=== PATIENT | female | born 1965 | race Caucasian/White ===

== ENCOUNTER 2018-08-01 21:06 | Inpatient (IN) | payer MEDICAID ==
[~2018-08-01] VITALS: Ht 165.1 cm; Wt 137.9 kg
[2018-08-01] MEDS ORDERED: ALBUTEROL (0.083%) 2.5MG/3ML NEB HHN STA (21:39)
[2018-08-01 22:11] LABS: BG BASE EXCESS -0.9 mmol/L (-2.0-2.0); BG CARBOXYHEMOGLOBIN 1.6 % (0.5-1.5); BG DEOXYHEMOGLOBIN 2.1 % (0.0-5.0); BG FRACTION INSPIRED OXYGEN 50; BG HCO3 ACT 26.8 mmol/L (22.0-26.0); BG METHEMOGLOBIN 0.2 % (0.0-1.5); BG OXYGEN SATURATION 97.9 % (92.0-98.5); BG OXYHEMOGLOBIN 96.1 % (94.0-97.0); BG PCO2 59.5 mmHg (35.0-45.0); BG PH 7.272 (7.350-7.450); BG PO2 122.9 mmHg (75.0-100.0); BG SAMPLE SITE RIGHT RADIAL; BG TOTAL HEMOGLOBIN 11.8 g/dL (12.0-18.0); BG VENT MODE MASK - AEROSOL
[2018-08-01 23:12] LABS: BASOPHILS % 0.5 % (0.0-2.0); EOSINOPHILS % 0.9 % (0.0-5.0); HEMATOCRIT. 31.9 % (36.0-48.0); HEMOGLOBIN. 10.1 g/dL (12.0-16.0); LYMPHOCYTES % 9.9 % (20.0-50.0); MEAN CORPUSCULAR HEMOGLOBIN 24.9 pg (28.0-32.0); MEAN CORPUSCULAR VOLUME 78.2 fL (81.0-99.0); MEAN PLATELET VOLUME 8.4 fl (7.4-10.4); MONOCYTES % 7.1 % (2.0-8.0); NEUTROPHILS % 81.6 % (40.0-76.0); PLATELET 254 x1000/uL (130-400); RED BLOOD CELL COUNT 4.07 mill/uL (4.2-5.4); RED CELL DISTRIBUTION WIDTH 17.5 % (11.6-14.6)
[2018-08-01 23:16] LABS: CHLORIDE 104 mEq/L (98-107)
[2018-08-01 23:22] LABS: INR 1.1; PARTIAL THROMBOPLASTIN TIME 30.7 sec (23.4-31.0); PROTHROMBIN TIME 10.8 sec (9.1-11.1)
[2018-08-02] MEDS ORDERED: FUROSEMIDE 100MG/10ML VIAL IVP ONE (00:30)
[2018-08-02 03:48] VITALS: BP 140/58
[2018-08-02 04:00] VITALS: BP_SYST 140; BP_SYST 153; BP_DIAS 58; BP_DIAS 68
[2018-08-02] MEDS ORDERED: ALBU18HF2 IH (04:30)
[2018-08-02] MEDS ORDERED: LORA2TAB2 PO (04:30)
[2018-08-02] MEDS ORDERED: DEXTROSE 50% WATER 50ML SYRINGE IV PRN (05:45)
[2018-08-02] MEDS ORDERED: NON FORMULARY PATIENT HOME MED XX SCH (05:45)
[2018-08-02] MEDS ORDERED: IPRATROPIUM/ALBUTEROL 0.5-3(2.5)MG/3ML NEB HHN PRN (06:00)
[2018-08-02] MEDS: FUROSEMIDE 40MG/4ML VIAL IVP SCH ×2 (06:41→16:52)
[2018-08-02] MEDS: BLOOD SUGAR DIAGNOSTIC STRIP TEST SCH ×4 (06:43→21:00)
[2018-08-02] MEDS: INSULIN LISPRO 100 UNITS/ML SUBCUT SCH ×4 (06:56→21:10)
[2018-08-02] MEDS: HYDROCODONE/ACETAMINOPHEN 5/325MG TABLET PO PRN ×2 (06:58→21:04)
[2018-08-02 08:00] VITALS: BP 111/45
[2018-08-02] MEDS: ENOXAPARIN 40MG/0.4ML SYR SUBCUT SCH ×2 (09:25→21:05)
[2018-08-02 09:35] LABS: BASOPHILS % 0.5 % (0.0-2.0); EOSINOPHILS % 1.6 % (0.0-5.0); HEMATOCRIT. 28.4 % (36.0-48.0); MEAN CORPUSCULAR VOLUME 78.5 fL (81.0-99.0); MEAN PLATELET VOLUME 8.3 fl (7.4-10.4); MONOCYTES % 8.7 % (2.0-8.0); NEUTROPHILS % 71.2 % (40.0-76.0); PLATELET 234 x1000/uL (130-400); RED BLOOD CELL COUNT 3.62 mill/uL (4.2-5.4); RED CELL DISTRIBUTION WIDTH 17.3 % (11.6-14.6)
[2018-08-02 09:41] LABS: CHLORIDE 104 mEq/L (98-107)
[2018-08-02 09:50] LABS: LDL CHOLESTEROL 97 mg/dL (5-100)
[2018-08-02 09:51] LABS: CREATINE KINASE 40 IU/L (26-192)
[2018-08-02 09:52] LABS: CREATINE KINASE MB FRACTION 1.5 ng/mL (0.5-3.6); HDL CHOLESTEROL 46 mg/dL (40-59)
[2018-08-02] MEDS: POTASSIUM CHLORIDE 20MEQ TABLET SR PO SCH (11:02)
[2018-08-02] MEDS: HYDROCODONE/ACETAMINOPHEN 10/325MG TABLET PO PRN ×3 (11:02→16:59)
[2018-08-02] MEDS: CARVEDILOL 6.25 MG TABLET PO SCH ×2 (11:02→21:05)
[2018-08-02] MEDS: LOSARTAN POTASSIUM 50 MG TABLET PO SCH (11:03)
[2018-08-02] MEDS: ASPIRIN 81MG EC TABLET PO SCH (11:03)
[2018-08-02 12:00] VITALS: BP 112/35
[2018-08-02] MEDS: LORAZEPAM 1MG TABLET PO PRN ×2 (14:09→22:17)
[2018-08-02 16:00] VITALS: BP 130/58
[2018-08-02 16:03] LABS: CREATINE KINASE 43 IU/L (26-192)
[2018-08-02 16:04] LABS: CREATINE KINASE MB FRACTION 1.1 ng/mL (0.5-3.6)
[2018-08-02 20:00] VITALS: BP 109/45
[2018-08-02] MEDS: ATORVASTATIN CALCIUM 40MG TABLET PO SCH (21:04)
[2018-08-03] VITALS (7 sets, daily range): BP systolic 110–144; BP diastolic 35–60
[2018-08-03] MEDS: HYDROCODONE/ACETAMINOPHEN 10/325MG TABLET PO PRN ×4 (00:21→16:17)
[2018-08-03] MEDS: HYDROCODONE/ACETAMINOPHEN 5/325MG TABLET PO PRN ×2 (04:31→21:02)
[2018-08-03] MEDS: BLOOD SUGAR DIAGNOSTIC STRIP TEST SCH ×4 (06:13→21:04)
[2018-08-03] MEDS: FUROSEMIDE 40MG/4ML VIAL IVP SCH ×2 (06:37→17:55)
[2018-08-03] MEDS: INSULIN LISPRO 100 UNITS/ML SUBCUT SCH ×4 (06:39→21:03)
[2018-08-03] MEDS: POTASSIUM CHLORIDE 20MEQ TABLET SR PO SCH (08:56)
[2018-08-03] MEDS: LOSARTAN POTASSIUM 50 MG TABLET PO SCH (08:56)
[2018-08-03] MEDS: LORAZEPAM 1MG TABLET PO PRN ×2 (08:56→18:01)
[2018-08-03] MEDS: ASPIRIN 81MG EC TABLET PO SCH (08:56)
[2018-08-03] MEDS: CARVEDILOL 6.25 MG TABLET PO SCH ×2 (08:57→21:02)
[2018-08-03] MEDS: ENOXAPARIN 40MG/0.4ML SYR SUBCUT SCH ×2 (09:36→21:02)
[2018-08-03] MEDS: ATORVASTATIN CALCIUM 40MG TABLET PO SCH (21:02)
[2018-08-03] MEDS: INSULIN GLARGINE UD 100 UNITS/ML SYR SUBCUT SCH (21:03)
[2018-08-04] VITALS (7 sets, daily range): BP systolic 95–156; BP diastolic 44–79
[2018-08-04] MEDS: LORAZEPAM 1MG TABLET PO PRN ×2 (04:09→21:15)
[2018-08-04] MEDS: HYDROCODONE/ACETAMINOPHEN 10/325MG TABLET PO PRN ×2 (05:05→18:26)
[2018-08-04 06:28] LABS: BASOPHILS % 0.6 % (0.0-2.0); EOSINOPHILS % 1.8 % (0.0-5.0); HEMATOCRIT. 28.2 % (36.0-48.0); LYMPHOCYTES % 19.3 % (20.0-50.0); MEAN CORPUSCULAR HEMOGLOBIN 24.9 pg (28.0-32.0); MEAN CORPUSCULAR VOLUME 78.4 fL (81.0-99.0); MEAN PLATELET VOLUME 9.1 fl (7.4-10.4); MONOCYTES % 6.7 % (2.0-8.0); NEUTROPHILS % 71.6 % (40.0-76.0); PLATELET 243 x1000/uL (130-400); RED BLOOD CELL COUNT 3.59 mill/uL (4.2-5.4); RED CELL DISTRIBUTION WIDTH 17.3 % (11.6-14.6)
[2018-08-04] MEDS: FUROSEMIDE 40MG/4ML VIAL IVP SCH (06:33)
[2018-08-04] MEDS: BLOOD SUGAR DIAGNOSTIC STRIP TEST SCH ×4 (06:33→21:15)
[2018-08-04] MEDS: INSULIN LISPRO 100 UNITS/ML SUBCUT SCH ×4 (06:36→21:16)
[2018-08-04] MEDS: LOSARTAN POTASSIUM 50 MG TABLET PO SCH ×3 (09:00→12:17)
[2018-08-04] MEDS: POTASSIUM CHLORIDE 20MEQ TABLET SR PO SCH ×2 (09:00→09:15)
[2018-08-04] MEDS: CARVEDILOL 6.25 MG TABLET PO SCH ×4 (09:00→21:15)
[2018-08-04] MEDS: ENOXAPARIN 40MG/0.4ML SYR SUBCUT SCH ×2 (09:15→21:15)
[2018-08-04] MEDS: ASPIRIN 81MG EC TABLET PO SCH (09:15)
[2018-08-04] MEDS: INSULIN GLARGINE UD 100 UNITS/ML SYR SUBCUT SCH ×2 (11:35→21:17)
[2018-08-04] MEDS: HYDROCODONE/ACETAMINOPHEN 5/325MG TABLET PO PRN (12:11)
[2018-08-04] MEDS: AZITHROMYCIN 500 MG TABLET PO SCH (14:32)
[2018-08-04] MEDS ORDERED: CEFTRIAXONE 1,000 MG in DEXTROSE 5% WATER 50 ML IV SCH (15:00)
[2018-08-04] MEDS ORDERED: SODIUM POLYSTYRENE SULFONATE 15 G/60 ML BOT PO NR (15:00)
[2018-08-04] MEDS: ATORVASTATIN CALCIUM 40MG TABLET PO SCH (21:14)
[2018-08-05] VITALS: BP 137/47
[2018-08-05] MEDS: HYDROCODONE/ACETAMINOPHEN 10/325MG TABLET PO PRN ×2 (01:49→08:19)
[2018-08-05 04:00] VITALS: BP 134/62
[2018-08-05] MEDS: BLOOD SUGAR DIAGNOSTIC STRIP TEST SCH (06:26)
[2018-08-05] MEDS: INSULIN LISPRO 100 UNITS/ML SUBCUT SCH (06:27)
[2018-08-05 06:33] LABS: BASOPHILS % 0.6 % (0.0-2.0); EOSINOPHILS % 2.2 % (0.0-5.0); HEMATOCRIT. 24.3 % (36.0-48.0); HEMOGLOBIN. 7.9 g/dL (12.0-16.0); LYMPHOCYTES % 25.4 % (20.0-50.0); MEAN CORPUSCULAR HEMOGLOBIN 25.4 pg (28.0-32.0); MEAN CORPUSCULAR VOLUME 78.5 fL (81.0-99.0); MEAN PLATELET VOLUME 8.7 fl (7.4-10.4); MONOCYTES % 7.9 % (2.0-8.0); NEUTROPHILS % 63.9 % (40.0-76.0); PLATELET 236 x1000/uL (130-400); RED BLOOD CELL COUNT 3.09 mill/uL (4.2-5.4)
[2018-08-05 08:00] VITALS: BP 155/59
[2018-08-05] MEDS: ENOXAPARIN 40MG/0.4ML SYR SUBCUT SCH (08:18)
[2018-08-05] MEDS: ASPIRIN 81MG EC TABLET PO SCH (08:18)
[2018-08-05] MEDS: AZITHROMYCIN 500 MG TABLET PO SCH (08:18)
[2018-08-05] MEDS: CARVEDILOL 6.25 MG TABLET PO SCH (09:00)
[2018-08-05] MEDS ORDERED: FUROSEMIDE 40MG TABLET PO SCH (09:00)
[2018-08-05] MEDS: INSULIN GLARGINE UD 100 UNITS/ML SYR SUBCUT SCH (11:09)
== END 2018-08-05 11:55 | disposition home or self-care (01) | DRG 194 ==
LOC: ER 21:06 → 5WST 08-02 01:13 → ENRESERV 08-02 03:17
PROVIDERS: ADMIT Internal Medicine; ATTEND Internal Medicine
DX: I13.0 Hypertensive heart and chronic kidney disease with heart failure and stage 1 through stage 4 chronic kidney disease, or unspecified chronic kidney disease (principal); J96.20 Acute and chronic respiratory failure, unspecified whether with hypoxia or hypercapnia; E43 Unspecified severe protein-calorie malnutrition; E87.2 Acidosis; E11.22 Type 2 diabetes mellitus with diabetic chronic kidney disease; Z99.81 Dependence on supplemental oxygen; I50.33 Acute on chronic diastolic (congestive) heart failure; N18.1 Chronic kidney disease, stage 1; J44.9 Chronic obstructive pulmonary disease, unspecified; D64.9 Anemia, unspecified; E11.65 Type 2 diabetes mellitus with hyperglycemia; E66.01 Morbid (severe) obesity due to excess calories; E78.5 Hyperlipidemia, unspecified; R32 Unspecified urinary incontinence; Z87.891 Personal history of nicotine dependence; Z98.891 History of uterine scar from previous surgery; Z68.43 Body mass index [BMI] 50.0-59.9, adult; Z79.899 Other long term (current) drug therapy
CPT/HCPCS: 36415; 36600; 71045; 80048; 80061; 82375; 82550; 82553; 82805; 82962; 83735; 83880; 84484; 93005; 93306; 93970; 94640; 96365; 96375; 99285; J0696; J1650; J1815; J1940; J7060; J7611; A4315

== ENCOUNTER 2018-08-06 10:35 | Inpatient (IN) | payer MEDICAID, OTHER ==
[~2018-08-06] VITALS: Ht 157.5 cm; Wt 156.5 kg
[~2018-08-06 10:35] MED LIST: ALBU18HF2 IH; LORA2TAB2 PO
[2018-08-06] MEDS ORDERED: IPRATROPIUM BROMIDE (0.02%) 0.5MG/2.5ML NEB HHN STA (11:05)
[2018-08-06] MEDS ORDERED: METHYLPREDNISOLONE SOD SUCC 125 MG/2 ML VIAL IV STA (11:05)
[2018-08-06] MEDS ORDERED: ALBUTEROL (0.083%) 2.5MG/3ML NEB HHN STA (11:05)
[2018-08-06 11:57] LABS: EOSINOPHILS % 1.6 % (0.0-5.0); HEMATOCRIT. 27.7 % (36.0-48.0); HEMOGLOBIN. 8.9 g/dL (12.0-16.0); MEAN CORPUSCULAR HEMOGLOBIN 25.1 pg (28.0-32.0); MEAN CORPUSCULAR VOLUME 78.3 fL (81.0-99.0); MEAN PLATELET VOLUME 8.7 fl (7.4-10.4); MONOCYTES % 6.9 % (2.0-8.0); NEUTROPHILS % 78.5 % (40.0-76.0); PLATELET 287 x1000/uL (130-400); RED BLOOD CELL COUNT 3.54 mill/uL (4.2-5.4); RED CELL DISTRIBUTION WIDTH 16.7 % (11.6-14.6)
[2018-08-06 12:05] LABS: CHLORIDE 106 mEq/L (98-107)
[2018-08-06 13:10] LABS: HCG SCREEN NEGATIVE
[2018-08-06] MEDS ORDERED: LEVOFLOXACIN 750MG PREMIX 150 ML IV ONE (13:15)
[2018-08-06] MEDS ORDERED: FUROSEMIDE 100MG/10ML VIAL IVP ONE (13:15)
[2018-08-06] MEDS ORDERED: ONDANSETRON HCL 4MG/2ML INJ IV PRN (14:30)
[2018-08-06] MEDS ORDERED: DEXTROSE 50% WATER 50ML SYRINGE IV PRN (14:30)
[2018-08-06] MEDS ORDERED: IPRATROPIUM/ALBUTEROL 0.5-3(2.5)MG/3ML NEB HHN PRN (14:30)
[2018-08-06] MEDS ORDERED: ACETAMINOPHEN 325MG TABLET PO PRN (14:30)
[2018-08-06] MEDS ORDERED: AZITHROMYCIN 500 MG TABLET PO SCH (14:30)
[2018-08-06] MEDS ORDERED: MORPHINE SULFATE 4 MG/ML CPJ (NOT FOR IM USE) IV NR (14:45)
[2018-08-06 15:53] LABS: TOTAL IRON BINDING CAPACITY 231 ug/dL (250-450)
[2018-08-06 16:35] LABS: CLARITY URINE CLEAR (CLEAR); COLOR URINE YELLOW (YELLOW); KETONES URINE NEGATIVE (NEGATIVE); LEUKOCYTE ESTERASE URINE NEGATIVE (NEGATIVE); NITRITE URINE NEGATIVE (NEGATIVE); OCCULT BLOOD URINE 1+ (NEGATIVE); PH URINE 5.5 (4.5-8.0); PROTEIN URINE 3+ (NEGATIVE); SPECIFIC GRAVITY URINE 1.014 (1.005-1.030)
[2018-08-06] MEDS ORDERED: CEFTRIAXONE 1 G PREMIX 50 ML IV NR (17:00)
[2018-08-06 17:05] LABS: *AMPHETAMINES SCREEN URINE NEGATIVE (NEGATIVE); *BARBITURATES SCREEN URINE NEGATIVE (NEGATIVE); *BENZODIAZEPINES SCREEN URINE NEGATIVE (NEGATIVE); *COCAINE SCREEN URINE NEGATIVE (NEGATIVE); CANNABINOID URINE SCREEN NEGATIVE (NEGATIVE); METHADONE URINE SCREEN NEGATIVE (NEGATIVE); OPIATES URINE SCREEN PRESUMTIVE POSITIVE (NEGATIVE); PHENCYCLIDINE URINE SCREEN NEGATIVE (NEGATIVE)
[2018-08-06] MEDS ORDERED: INSULIN LISPRO 100 UNITS/ML SUBCUT SCH (18:20)
[2018-08-06] MEDS ORDERED: BUDESONIDE 0.5MG/2ML NEB HHN NR (20:30)
[2018-08-06] MEDS: KETOROLAC 30MG/ML VIAL IV PRN (22:29)
[2018-08-07] VITALS: BP_SYST 157; BP_DIAS 65; BP_DIAS 67
[2018-08-07] MEDS: AMLODIPINE 5MG TABLET PO SCH ×3 (01:18→20:39)
[2018-08-07] MEDS: IPRATROPIUM/ALBUTEROL 0.5-3(2.5)MG/3ML NEB HHN SCH ×4 (01:46→21:28)
[2018-08-07 04:00] VITALS: BP 154/63
[2018-08-07 05:53] VITALS: BP 157/63
[2018-08-07] MEDS: BLOOD SUGAR DIAGNOSTIC STRIP TEST SCH ×4 (06:42→20:39)
[2018-08-07] MEDS: INSULIN LISPRO 100 UNITS/ML SUBCUT SCH ×4 (06:44→20:44)
[2018-08-07 06:59] LABS: BASOPHILS % 0.3 % (0.0-2.0); HEMATOCRIT. 25.8 % (36.0-48.0); HEMOGLOBIN. 8.3 g/dL (12.0-16.0); LYMPHOCYTES % 12.3 % (20.0-50.0); MEAN CORPUSCULAR HEMOGLOBIN 25.2 pg (28.0-32.0); MEAN CORPUSCULAR VOLUME 78.2 fL (81.0-99.0); MEAN PLATELET VOLUME 8.7 fl (7.4-10.4); MONOCYTES % 7.7 % (2.0-8.0); NEUTROPHILS % 79.7 % (40.0-76.0); PLATELET 268 x1000/uL (130-400)
[2018-08-07 08:00] VITALS: BP 123/58
[2018-08-07] MEDS ORDERED: BUDESONIDE 0.5MG/2ML NEB HHN SCH (08:00)
[2018-08-07] MEDS ORDERED: KETOROLAC 30MG/ML VIAL ONE (08:27)
[2018-08-07] MEDS: FUROSEMIDE 40MG/4ML VIAL IVP SCH ×2 (09:04→18:20)
[2018-08-07] MEDS: AZITHROMYCIN 500 MG TABLET PO SCH (09:05)
[2018-08-07] MEDS: FERROUS SULFATE 325MG TABLET PO SCH ×3 (09:06→18:20)
[2018-08-07] MEDS: GUAIFENESIN 600MG ER TABLET PO SCH ×2 (09:06→20:38)
[2018-08-07] MEDS: DOCUSATE SODIUM 100MG CAPSULE PO SCH ×2 (10:07→18:20)
[2018-08-07] MEDS: KETOROLAC 30MG/ML VIAL IV PRN ×3 (10:27→23:03)
[2018-08-07 12:00] VITALS: BP 136/60
[2018-08-07] MEDS ORDERED: CEFTRIAXONE 1 G PREMIX 50 ML IV SCH (14:30)
[2018-08-07] MEDS: CEFTRIAXONE 1 G PREMIX 50 ML IV SCH (18:20)
[2018-08-07] MEDS: HYDROCODONE/ACETAMINOPHEN 5/325MG TABLET PO PRN (19:29)
[2018-08-07 20:00] VITALS: BP 144/80
[2018-08-07] MEDS: INSULIN GLARGINE UD 100 UNITS/ML SYR SUBCUT SCH (20:45)
[2018-08-07] MEDS: BUDESONIDE 0.5MG/2ML NEB HHN SCH (21:28)
[2018-08-07] MEDS: LORAZEPAM 0.5MG TABLET PO PRN (22:20)
[2018-08-08] VITALS: BP 125/58
[2018-08-08] MEDS: HYDROCODONE/ACETAMINOPHEN 5/325MG TABLET PO PRN ×3 (01:09→20:09)
[2018-08-08] MEDS: IPRATROPIUM/ALBUTEROL 0.5-3(2.5)MG/3ML NEB HHN SCH ×3 (02:40→20:28)
[2018-08-08 04:00] VITALS: BP 128/57
[2018-08-08 06:44] LABS: BASOPHILS % 0.6 % (0.0-2.0); HEMATOCRIT. 25.7 % (36.0-48.0); HEMOGLOBIN. 8.2 g/dL (12.0-16.0); LYMPHOCYTES % 25.2 % (20.0-50.0); MEAN CORPUSCULAR HEMOGLOBIN 25.1 pg (28.0-32.0); MEAN CORPUSCULAR VOLUME 78.7 fL (81.0-99.0); MEAN PLATELET VOLUME 8.2 fl (7.4-10.4); NEUTROPHILS % 63.2 % (40.0-76.0); PLATELET 261 x1000/uL (130-400); RED BLOOD CELL COUNT 3.26 mill/uL (4.2-5.4); RED CELL DISTRIBUTION WIDTH 17.5 % (11.6-14.6)
[2018-08-08] MEDS: KETOROLAC 30MG/ML VIAL IV PRN ×3 (07:09→21:10)
[2018-08-08] MEDS: BLOOD SUGAR DIAGNOSTIC STRIP TEST SCH ×4 (07:40→21:01)
[2018-08-08 08:00] VITALS: BP 147/68
[2018-08-08] MEDS: BUDESONIDE 0.5MG/2ML NEB HHN SCH (08:00)
[2018-08-08] MEDS: FERROUS SULFATE 325MG TABLET PO SCH ×3 (08:43→17:27)
[2018-08-08] MEDS: AMLODIPINE 5MG TABLET PO SCH ×2 (08:44→20:08)
[2018-08-08] MEDS: GUAIFENESIN 600MG ER TABLET PO SCH ×2 (08:44→20:09)
[2018-08-08] MEDS: AZITHROMYCIN 500 MG TABLET PO SCH (08:48)
[2018-08-08] MEDS: DOCUSATE SODIUM 100MG CAPSULE PO SCH ×2 (09:00→17:00)
[2018-08-08] MEDS: FUROSEMIDE 40MG/4ML VIAL IVP SCH (09:43)
[2018-08-08] MEDS: INSULIN GLARGINE UD 100 UNITS/ML SYR SUBCUT SCH ×2 (10:39→21:05)
[2018-08-08 12:00] VITALS: BP 135/62
[2018-08-08] MEDS: GLIPIZIDE 5MG TABLET PO SCH ×2 (13:13→17:48)
[2018-08-08] MEDS: INSULIN LISPRO 100 UNITS/ML SUBCUT SCH ×3 (13:14→21:05)
[2018-08-08 16:00] VITALS: BP 128/70
[2018-08-08] MEDS: LORAZEPAM 0.5MG TABLET PO PRN (17:43)
[2018-08-08] MEDS: CEFTRIAXONE 1 G PREMIX 50 ML IV SCH (18:22)
[2018-08-08 20:00] VITALS: BP 142/72
[2018-08-09] VITALS: BP 128/43
[2018-08-09] MEDS: IPRATROPIUM/ALBUTEROL 0.5-3(2.5)MG/3ML NEB HHN SCH ×4 (02:02→21:18)
[2018-08-09 04:00] VITALS: BP 122/49
[2018-08-09 06:34] LABS: BASOPHILS % 0.5 % (0.0-2.0); HEMATOCRIT. 26.2 % (36.0-48.0); HEMOGLOBIN. 8.4 g/dL (12.0-16.0); LYMPHOCYTES % 26.5 % (20.0-50.0); MEAN CORPUSCULAR HEMOGLOBIN 25.2 pg (28.0-32.0); MEAN CORPUSCULAR VOLUME 78.8 fL (81.0-99.0); MEAN PLATELET VOLUME 8.6 fl (7.4-10.4); PLATELET 258 x1000/uL (130-400); RED BLOOD CELL COUNT 3.32 mill/uL (4.2-5.4); RED CELL DISTRIBUTION WIDTH 17.4 % (11.6-14.6)
[2018-08-09] MEDS: KETOROLAC 30MG/ML VIAL IV PRN ×3 (06:47→22:40)
[2018-08-09] MEDS: BLOOD SUGAR DIAGNOSTIC STRIP TEST SCH ×4 (06:57→20:48)
[2018-08-09] MEDS: BUDESONIDE 0.5MG/2ML NEB HHN SCH ×2 (07:58→21:19)
[2018-08-09 08:00] VITALS: BP 126/60
[2018-08-09] MEDS: AMLODIPINE 5MG TABLET PO SCH ×2 (08:41→21:26)
[2018-08-09] MEDS: FERROUS SULFATE 325MG TABLET PO SCH ×3 (08:41→17:14)
[2018-08-09] MEDS: GUAIFENESIN 600MG ER TABLET PO SCH ×2 (08:42→21:22)
[2018-08-09] MEDS: GLIPIZIDE 5MG TABLET PO SCH ×2 (08:42→17:15)
[2018-08-09] MEDS: AZITHROMYCIN 500 MG TABLET PO SCH (08:42)
[2018-08-09] MEDS: INSULIN LISPRO 100 UNITS/ML SUBCUT SCH ×4 (08:44→21:41)
[2018-08-09] MEDS: DOCUSATE SODIUM 100MG CAPSULE PO SCH ×2 (08:45→17:00)
[2018-08-09] MEDS ORDERED: FUROSEMIDE 40MG TABLET PO SCH (09:00)
[2018-08-09] MEDS: INSULIN GLARGINE UD 100 UNITS/ML SYR SUBCUT SCH ×2 (09:59→21:34)
[2018-08-09 12:00] VITALS: BP 130/60
[2018-08-09 16:00] VITALS: BP 129/58
[2018-08-09] MEDS: CEFTRIAXONE 1 G PREMIX 50 ML IV SCH (17:52)
[2018-08-09] MEDS: HYDROCODONE/ACETAMINOPHEN 5/325MG TABLET PO PRN (19:53)
[2018-08-09 20:00] VITALS: BP 146/67
[2018-08-10] VITALS: BP 134/61
[2018-08-10] MEDS: IPRATROPIUM/ALBUTEROL 0.5-3(2.5)MG/3ML NEB HHN SCH ×3 (02:10→13:15)
[2018-08-10 04:00] VITALS: BP 128/62
[2018-08-10] MEDS: KETOROLAC 30MG/ML VIAL IV PRN ×2 (04:38→10:48)
[2018-08-10 06:26] LABS: BASOPHILS % 0.5 % (0.0-2.0); HEMATOCRIT. 27.4 % (36.0-48.0); HEMOGLOBIN. 8.8 g/dL (12.0-16.0); LYMPHOCYTES % 22.1 % (20.0-50.0); MEAN CORPUSCULAR HEMOGLOBIN 25.4 pg (28.0-32.0); MEAN CORPUSCULAR VOLUME 78.8 fL (81.0-99.0); MEAN PLATELET VOLUME 8.1 fl (7.4-10.4); MONOCYTES % 7.4 % (2.0-8.0); PLATELET 255 x1000/uL (130-400); RED BLOOD CELL COUNT 3.48 mill/uL (4.2-5.4); RED CELL DISTRIBUTION WIDTH 17.7 % (11.6-14.6)
[2018-08-10] MEDS: BLOOD SUGAR DIAGNOSTIC STRIP TEST SCH ×2 (06:31→12:40)
[2018-08-10 08:00] VITALS: BP 125/65
[2018-08-10] MEDS: BUDESONIDE 0.5MG/2ML NEB HHN SCH (08:28)
[2018-08-10] MEDS: DOCUSATE SODIUM 100MG CAPSULE PO SCH (08:41)
[2018-08-10] MEDS: FERROUS SULFATE 325MG TABLET PO SCH ×2 (08:41→13:28)
[2018-08-10] MEDS: AZITHROMYCIN 500 MG TABLET PO SCH (08:41)
[2018-08-10] MEDS: GUAIFENESIN 600MG ER TABLET PO SCH (08:41)
[2018-08-10] MEDS: GLIPIZIDE 5MG TABLET PO SCH (08:41)
[2018-08-10] MEDS: AMLODIPINE 5MG TABLET PO SCH (08:41)
[2018-08-10] MEDS: INSULIN LISPRO 100 UNITS/ML SUBCUT SCH ×2 (08:47→13:28)
[2018-08-10] MEDS ORDERED: FUROSEMIDE 40MG/4ML VIAL IVP SCH (09:00)
[2018-08-10] MEDS: INSULIN GLARGINE UD 100 UNITS/ML SYR SUBCUT SCH (10:57)
[2018-08-10 12:00] VITALS: BP 131/69
== END 2018-08-10 16:15 | disposition home or self-care (01) | DRG 720 ==
LOC: ER 11:08 → 7WST 13:36 → EDBEDREQ 13:38 → EDBEDREQTM 13:38 → ENRESERV 22:12 → 7WST 08-07 16:19
PROVIDERS: ADMIT Internal Medicine; ATTEND Internal Medicine
DX: A41.9 Sepsis, unspecified organism (principal); J96.00 Acute respiratory failure, unspecified whether with hypoxia or hypercapnia; I50.33 Acute on chronic diastolic (congestive) heart failure; E43 Unspecified severe protein-calorie malnutrition; J18.1 Lobar pneumonia, unspecified organism; I27.20 Pulmonary hypertension, unspecified; E66.01 Morbid (severe) obesity due to excess calories; N17.9 Acute kidney failure, unspecified; I11.0 Hypertensive heart disease with heart failure; E11.9 Type 2 diabetes mellitus without complications; J44.0 Chronic obstructive pulmonary disease with (acute) lower respiratory infection; D64.9 Anemia, unspecified; Z99.81 Dependence on supplemental oxygen; Z87.891 Personal history of nicotine dependence; Z68.44 Body mass index [BMI] 60.0-69.9, adult; Z71.3 Dietary counseling and surveillance
CPT/HCPCS: 36415; 71045; 80048; 80305; 82728; 82962; 83036; 83540; 83550; 83605; 83880; 84484; 84703; 87804; 93005; 94640; 94644; 96374; 97110; 97116; 97161; 97530; 99285; C1893; J0696; J1815; J1885; J1940; J1956; J2270; J2930; J7050; J7611; J7620; J7626

== ENCOUNTER 2018-08-29 11:10 | Inpatient (IN) | payer MEDICAID, MEDICARE ==
[~2018-08-29] VITALS: Ht 160 cm; Wt 141.6 kg
[2018-08-29] MEDS ORDERED: ALBUTEROL (0.083%) 2.5MG/3ML NEB HHN STA (11:13)
[2018-08-29] MEDS ORDERED: IPRATROPIUM BROMIDE (0.02%) 0.5MG/2.5ML NEB HHN STA (11:13)
[2018-08-29] MEDS ORDERED: NITROGLYCERIN OINT 1GM/INCH UDPKT TD ONE (11:15)
[2018-08-29] MEDS ORDERED: FUROSEMIDE 40MG/4ML VIAL IVP ONE (11:15)
[2018-08-29 11:58] LABS: BASOPHILS % 0.4 % (0.0-2.0); EOSINOPHILS % 3.4 % (0.0-5.0); HEMATOCRIT. 25.7 % (36.0-48.0); HEMOGLOBIN. 8.5 g/dL (12.0-16.0); LYMPHOCYTES % 12.7 % (20.0-50.0); MEAN CORPUSCULAR HEMOGLOBIN 25.5 pg (28.0-32.0); MEAN CORPUSCULAR VOLUME 76.5 fL (81.0-99.0); MEAN PLATELET VOLUME 7.8 fl (7.4-10.4); MONOCYTES % 6.8 % (2.0-8.0); NEUTROPHILS % 76.7 % (40.0-76.0); PLATELET 203 x1000/uL (130-400); RED BLOOD CELL COUNT 3.36 mill/uL (4.2-5.4)
[2018-08-29 12:02] LABS: CHLORIDE 106 mEq/L (98-107)
[2018-08-29 12:05] LABS: PARTIAL THROMBOPLASTIN TIME 27.8 sec (23.4-31.0); PROTHROMBIN TIME 10.1 sec (9.1-11.1)
[2018-08-29] MEDS ORDERED: LEVOFLOXACIN 750MG PREMIX 150 ML IV ONE (12:15)
[2018-08-29 12:18] LABS: BG BASE EXCESS 2.4 mmol/L (-2.0-2.0); BG BILEVEL POS AIRWAY PRESSURE 15/5; BG CARBOXYHEMOGLOBIN 0.6 % (0.5-1.5); BG DEOXYHEMOGLOBIN 1.3 % (0.0-5.0); BG HCO3 ACT 28.5 mmol/L (22.0-26.0); BG METHEMOGLOBIN 0.2 % (0.0-1.5); BG OXYGEN SATURATION 98.7 % (92.0-98.5); BG OXYHEMOGLOBIN 97.9 % (94.0-97.0); BG PCO2 52.4 mmHg (35.0-45.0); BG PH 7.354 (7.350-7.450); BG SAMPLE SITE RIGHT RADIAL; BG TOTAL HEMOGLOBIN 9.5 g/dL (12.0-18.0); BG VENT MODE MASK - BIPAP; BG VENT RATE 14 set
[2018-08-29] MEDS ORDERED: IPRATROPIUM/ALBUTEROL 0.5-3(2.5)MG/3ML NEB INH PRN (14:45)
[2018-08-29] MEDS ORDERED: GUAIFENESIN 200MG/10ML SUGAR FREE UDC PO PRN (14:45)
[2018-08-29] MEDS ORDERED: ONDANSETRON HCL 4MG/2ML INJ IV PRN (14:45)
[2018-08-29] MEDS ORDERED: HYDROCODONE/ACETAMINOPHEN 5/325MG TABLET PO PRN (14:45)
[2018-08-29] MEDS ORDERED: NA PHOS,M-B/NA PHOS,DI-BA ENEMA 118ML PR PRN (14:45)
[2018-08-29] MEDS ORDERED: DEXTROSE 50% WATER 50ML SYRINGE IV PRN (14:45)
[2018-08-29] MEDS ORDERED: MAGNESIUM/ALUMINUM HYDROXIDE/SIMETHICONE 30ML UDC PO PRN (14:45)
[2018-08-29] MEDS ORDERED: ACETAMINOPHEN 650MG SUPP PR PRN (14:45)
[2018-08-29] MEDS ORDERED: ACETAMINOPHEN 325MG TABLET PO PRN (14:45)
[2018-08-29] MEDS ORDERED: DOCUSATE SODIUM 100MG CAPSULE PO PRN (14:45)
[2018-08-29 15:16] LABS: TOTAL IRON BINDING CAPACITY 197 ug/dL (250-450)
[2018-08-29] MEDS: LORAZEPAM 0.5MG TABLET PO PRN (15:52)
[2018-08-29] MEDS: FUROSEMIDE 40MG/4ML VIAL IV SCH (20:43)
[2018-08-29] MEDS: FAMOTIDINE 20MG/2ML VIAL IV SCH (20:44)
[2018-08-29] MEDS: METHYLPREDNISOLONE SOD SUCC 40 MG/ML VIAL IV SCH (20:44)
[2018-08-29 20:48] VITALS: BP 145/59
[2018-08-29 20:56] VITALS: BP 145/59
[2018-08-29] MEDS: BLOOD SUGAR DIAGNOSTIC STRIP TEST SCH (21:00)
[2018-08-29] MEDS: INSULIN LISPRO 100 UNITS/ML SUBCUT SCH (21:00)
[2018-08-29] MEDS: DIPHENHYDRAMINE 50MG/ML VIAL IV PRN (21:16)
[2018-08-29] MEDS ORDERED: INSULIN LISPRO 100 UNITS/ML SUBCUT NR (23:30)
[2018-08-29] MEDS: MORPHINE SULFATE 4 MG/ML CPJ (NOT FOR IM USE) IV PRN (23:55)
[2018-08-30 00:26] VITALS: BP 166/76
[2018-08-30] MEDS: CLONIDINE 0.1MG TABLET PO PRN ×2 (02:03→10:21)
[2018-08-30 03:46] LABS: CLARITY URINE CLEAR (CLEAR); COLOR URINE YELLOW (YELLOW); KETONES URINE NEGATIVE (NEGATIVE); LEUKOCYTE ESTERASE URINE NEGATIVE (NEGATIVE); NITRITE URINE NEGATIVE (NEGATIVE); OCCULT BLOOD URINE 1+ (NEGATIVE); PROTEIN URINE 3+ (NEGATIVE); SPECIFIC GRAVITY URINE 1.015 (1.005-1.030); UROBILINOGEN URINE 0.2 E.U./dL (0.2-1.0)
[2018-08-30 04:00] VITALS: BP 128/60
[2018-08-30 04:53] LABS: *AMPHETAMINES SCREEN URINE NEGATIVE (NEGATIVE)
[2018-08-30 04:54] LABS: *BARBITURATES SCREEN URINE NEGATIVE (NEGATIVE); *BENZODIAZEPINES SCREEN URINE NEGATIVE (NEGATIVE); *COCAINE SCREEN URINE NEGATIVE (NEGATIVE); CANNABINOID URINE SCREEN NEGATIVE (NEGATIVE); METHADONE URINE SCREEN NEGATIVE (NEGATIVE); PHENCYCLIDINE URINE SCREEN NEGATIVE (NEGATIVE)
[2018-08-30 04:55] LABS: OPIATES URINE SCREEN PRESUMTIVE POSITIVE (NEGATIVE)
[2018-08-30 06:22] LABS: HEMATOCRIT. 25.8 % (36.0-48.0); HEMOGLOBIN. 8.2 g/dL (12.0-16.0); MEAN CORPUSCULAR HEMOGLOBIN 24.8 pg (28.0-32.0); MEAN CORPUSCULAR VOLUME 78.2 fL (81.0-99.0); MEAN PLATELET VOLUME 8.4 fl (7.4-10.4); PLATELET 201 x1000/uL (130-400); RED CELL DISTRIBUTION WIDTH 16.7 % (11.6-14.6)
[2018-08-30] MEDS: BLOOD SUGAR DIAGNOSTIC STRIP TEST SCH ×4 (06:40→20:26)
[2018-08-30] MEDS: FUROSEMIDE 40MG/4ML VIAL IV SCH (06:40)
[2018-08-30] MEDS: INSULIN LISPRO 100 UNITS/ML SUBCUT SCH ×4 (06:42→21:00)
[2018-08-30] MEDS: MORPHINE SULFATE 4 MG/ML CPJ (NOT FOR IM USE) IV PRN ×3 (06:46→21:33)
[2018-08-30 06:47] LABS: CHLORIDE 105 mEq/L (98-107)
[2018-08-30 06:56] LABS: LDL CHOLESTEROL 117 mg/dL (5-100); T4 FREE 0.81 ng/dL (0.76-1.46)
[2018-08-30 06:57] LABS: HDL CHOLESTEROL 54 mg/dL (40-59)
[2018-08-30 08:00] VITALS: BP 168/60
[2018-08-30] MEDS: IPRATROPIUM/ALBUTEROL 0.5-3(2.5)MG/3ML NEB INH SCH ×3 (08:22→22:26)
[2018-08-30] MEDS: FAMOTIDINE 20MG/2ML VIAL IV SCH ×2 (09:00→20:37)
[2018-08-30] MEDS: METHYLPREDNISOLONE SOD SUCC 40 MG/ML VIAL IV SCH (10:19)
[2018-08-30] MEDS ORDERED: INSULIN GLARGINE UD 100 UNITS/ML SYR SUBCUT NR (10:45)
[2018-08-30] MEDS: LORAZEPAM 0.5MG TABLET PO PRN (11:16)
[2018-08-30 12:00] VITALS: BP 161/55
[2018-08-30] MEDS ORDERED: LEVOFLOXACIN 500MG PREMIX 100 ML IV SCH (12:00)
[2018-08-30] MEDS ORDERED: SODIUM POLYSTYRENE SULFONATE 15 G/60 ML BOT PO NR (12:00)
[2018-08-30] MEDS ORDERED: SODIUM BICARBONATE 4% (2.4MEQ) 5ML VIAL IV ONE (13:46)
[2018-08-30] MEDS ORDERED: INSULIN LISPRO 100 UNITS/ML SUBCUT SCH (14:00)
[2018-08-30] MEDS ORDERED: LIDOCAINE HCL/PF 1% 2ML VIAL ONE (14:38)
[2018-08-30] MEDS ORDERED: LORAZEPAM 0.5MG TABLET PO PRN (14:45)
[2018-08-30] MEDS: AMLODIPINE 5MG TABLET PO SCH (15:11)
[2018-08-30] MEDS: CARVEDILOL 3.125 MG TABLET PO SCH (15:12)
[2018-08-30] MEDS ORDERED: AMLO5TAB88 PO (15:21)
[2018-08-30] MEDS ORDERED: ASPI-1159 PO (15:21)
[2018-08-30] MEDS ORDERED: FERR325T6 PO (15:21)
[2018-08-30] MEDS ORDERED: FURO-151 PO (15:21)
[2018-08-30] MEDS ORDERED: GLIP10TA10 PO (15:21)
[2018-08-30 16:00] VITALS: BP 149/56
[2018-08-30 16:31] LABS: BG CARBOXYHEMOGLOBIN 0.4 % (0.5-1.5); BG DEOXYHEMOGLOBIN 11.1 % (0.0-5.0); BG FRACTION INSPIRED OXYGEN 21; BG HCO3 ACT 25.7 mmol/L (22.0-26.0); BG METHEMOGLOBIN 0.2 % (0.0-1.5); BG OXYGEN SATURATION 88.8 % (92.0-98.5); BG OXYHEMOGLOBIN 88.3 % (94.0-97.0); BG PCO2 41.5 mmHg (35.0-45.0); BG PO2 54.3 mmHg (75.0-100.0); BG SAMPLE SITE RIGHT RADIAL; BG TOTAL HEMOGLOBIN 9.5 g/dL (12.0-18.0); BG VENT MODE ROOM AIR
[2018-08-30] MEDS: FERROUS SULFATE 325MG TABLET PO SCH (18:00)
[2018-08-30] MEDS: DIPHENHYDRAMINE 50MG/ML VIAL IV PRN (18:08)
[2018-08-30 20:00] VITALS: BP 149/56
[2018-08-30] MEDS ORDERED: INSULIN LISPRO 100 UNITS/ML SUBCUT NR (20:30)
[2018-08-30] MEDS: INSULIN GLARGINE UD 100 UNITS/ML SYR SUBCUT SCH (21:38)
[2018-08-30] MEDS ORDERED: INSULIN GLARGINE UD 100 UNITS/ML SYR SUBCUT SCH (22:00)
[2018-08-31] VITALS: BP 143/53
[2018-08-31] MEDS: IPRATROPIUM/ALBUTEROL 0.5-3(2.5)MG/3ML NEB INH SCH ×3 (02:46→13:58)
[2018-08-31 03:45] VITALS: BP 140/55
[2018-08-31] MEDS: MORPHINE SULFATE 4 MG/ML CPJ (NOT FOR IM USE) IV PRN (03:45)
[2018-08-31] MEDS: CARVEDILOL 3.125 MG TABLET PO SCH (05:58)
[2018-08-31] MEDS: INSULIN LISPRO 100 UNITS/ML SUBCUT SCH ×2 (06:00→12:58)
[2018-08-31] MEDS: BLOOD SUGAR DIAGNOSTIC STRIP TEST SCH ×2 (06:39→12:58)
[2018-08-31 06:51] LABS: HEMATOCRIT 25.4 % (36.0-48.0); HEMOGLOBIN 8.4 g/dL (12.0-16.0); MEAN CORPUSCULAR HEMOGLOBIN 25.5 pg (28.0-32.0); MEAN CORPUSCULAR VOLUME 76.6 fL (81.0-99.0); PLATELET 238 x1000/uL (130-400); RED BLOOD CELL COUNT 3.31 mill/uL (4.2-5.4); RED CELL DISTRIBUTION WIDTH 17.3 % (11.6-14.6)
[2018-08-31 08:00] VITALS: BP 138/59
[2018-08-31] MEDS: FERROUS SULFATE 325MG TABLET PO SCH ×2 (08:49→12:55)
[2018-08-31] MEDS: AMLODIPINE 5MG TABLET PO SCH (08:50)
[2018-08-31] MEDS: FAMOTIDINE 20MG/2ML VIAL IV SCH (08:51)
[2018-08-31] MEDS ORDERED: METHYLPREDNISOLONE SOD SUCC 40 MG/ML VIAL IV SCH (09:00)
[2018-08-31] MEDS ORDERED: FUROSEMIDE 40MG/4ML VIAL IV SCH (09:00)
[2018-08-31 10:06] LABS: BG BASE EXCESS 4.9 mmol/L (-2.0-2.0); BG CARBOXYHEMOGLOBIN 0.2 % (0.5-1.5); BG DEOXYHEMOGLOBIN 2.5 % (0.0-5.0); BG HCO3 ACT 30.5 mmol/L (22.0-26.0); BG METHEMOGLOBIN 0.4 % (0.0-1.5); BG OXYGEN SATURATION 97.5 % (92.0-98.5); BG OXYHEMOGLOBIN 96.9 % (94.0-97.0); BG PCO2 50.8 mmHg (35.0-45.0); BG PH 7.397 (7.350-7.450); BG PO2 102.9 mmHg (75.0-100.0); BG SAMPLE SITE RIGHT RADIAL; BG VENT MODE NASAL CANNULA
[2018-08-31] MEDS: INSULIN GLARGINE UD 100 UNITS/ML SYR SUBCUT SCH (10:25)
[2018-08-31] MEDS ORDERED: LEVOFLOXACIN 500MG PREMIX 100 ML IV SCH (11:00)
[2018-08-31 12:00] VITALS: BP 148/77
[2018-08-31 13:25] LABS: PLATELET ESTIMATE NORMAL
[2018-08-31 13:29] LABS: BG BASE EXCESS 5.2 mmol/L (-2.0-2.0); BG CARBOXYHEMOGLOBIN 0.2 % (0.5-1.5); BG DEOXYHEMOGLOBIN 11.9 % (0.0-5.0); BG FRACTION INSPIRED OXYGEN 21; BG HCO3 ACT 29.9 mmol/L (22.0-26.0); BG METHEMOGLOBIN 0.2 % (0.0-1.5); BG OXYGEN SATURATION 88.1 % (92.0-98.5); BG OXYHEMOGLOBIN 87.7 % (94.0-97.0); BG PCO2 44.9 mmHg (35.0-45.0); BG PH 7.442 (7.350-7.450); BG PO2 52.7 mmHg (75.0-100.0); BG SAMPLE SITE RIGHT RADIAL; BG TOTAL HEMOGLOBIN 9.6 g/dL (12.0-18.0); BG VENT MODE ROOM AIR
[2018-08-31] MEDS ORDERED: LIDOCAINE HCL/PF 1% 2ML VIAL ONE (14:36)
[2018-08-31 14:58] VITALS: BP 148/77
== END 2018-08-31 16:15 | disposition home or self-care (01) | DRG 194 ==
LOC: ER 11:10 → EDBEDREQ 11:18 → 8WST 12:02 → EDBEDREQ 12:03 → EDBEDREQSVC 16:03 → ENRESERV 16:23 → 8WST 18:50
PROVIDERS: ADMIT Internal Medicine; ATTEND Internal Medicine
PROC: 5A09357 Assistance with Respiratory Ventilation, Less than 24 Consecutive Hours, Continuous Positive Airway Pressure (ICD-10-PCS; principal; 2018-08-29)
PROC: 0W993ZZ Drainage of Right Pleural Cavity, Percutaneous Approach (ICD-10-PCS; 2018-08-30)
DX: I13.0 Hypertensive heart and chronic kidney disease with heart failure and stage 1 through stage 4 chronic kidney disease, or unspecified chronic kidney disease (principal); J96.00 Acute respiratory failure, unspecified whether with hypoxia or hypercapnia; J18.1 Lobar pneumonia, unspecified organism; E11.22 Type 2 diabetes mellitus with diabetic chronic kidney disease; I27.20 Pulmonary hypertension, unspecified; E44.0 Moderate protein-calorie malnutrition; E66.2 Morbid (severe) obesity with alveolar hypoventilation; Z68.43 Body mass index [BMI] 50.0-59.9, adult; E11.65 Type 2 diabetes mellitus with hyperglycemia; I50.43 Acute on chronic combined systolic (congestive) and diastolic (congestive) heart failure; D50.9 Iron deficiency anemia, unspecified; E78.5 Hyperlipidemia, unspecified; E87.5 Hyperkalemia; J44.0 Chronic obstructive pulmonary disease with (acute) lower respiratory infection; F41.9 Anxiety disorder, unspecified; K59.00 Constipation, unspecified; J44.1 Chronic obstructive pulmonary disease with (acute) exacerbation; N18.9 Chronic kidney disease, unspecified; R79.1 Abnormal coagulation profile; Z87.891 Personal history of nicotine dependence; Z99.81 Dependence on supplemental oxygen
CPT/HCPCS: 32555; 36415; 36600; 71045; 80048; 80061; 80305; 82040; 82375; 82805; 82962; 83036; 83540; 83550; 83605; 83615; 83880; 84145; 84439; 84443; 84484; 85027; 85379; 93005; 93970; 94640; 94660; 96365; 96366; 96375; 97162; 99291; J1200; J1815; J1940; J1956; J2270; J2920; J3490; J7050; J7611; J7620

== ENCOUNTER 2018-09-07 00:31 | Inpatient (IN) | payer MEDICARE ==
[2018-09-07] VITALS (8 sets, daily range): BP systolic 116–155; BP diastolic 45–77
[~2018-09-07] VITALS: Ht 167.6 cm; Wt 155.6 kg
[~2018-09-07 00:31] MED LIST changes: +AMLO5TAB88 PO; +ASPI-1159 PO; +FERR325T6 PO; +FURO-151 PO; +GLIP10TA10 PO
[2018-09-07] MEDS ORDERED: ALBUTEROL (0.083%) 2.5MG/3ML NEB HHN STA (00:48)
[2018-09-07] MEDS ORDERED: IPRATROPIUM BROMIDE (0.02%) 0.5MG/2.5ML NEB HHN STA (00:48)
[2018-09-07 01:14] LABS: BASOPHILS % 0.7 % (0.0-2.0); EOSINOPHILS % 1.6 % (0.0-5.0); HEMATOCRIT. 25.8 % (36.0-48.0); HEMOGLOBIN. 8.2 g/dL (12.0-16.0); LYMPHOCYTES % 11.8 % (20.0-50.0); MEAN CORPUSCULAR VOLUME 78.5 fL (81.0-99.0); MEAN PLATELET VOLUME 8.3 fl (7.4-10.4); NEUTROPHILS % 79.9 % (40.0-76.0); PLATELET 229 x1000/uL (130-400); RED BLOOD CELL COUNT 3.29 mill/uL (4.2-5.4); RED CELL DISTRIBUTION WIDTH 17.3 % (11.6-14.6)
[2018-09-07 01:17] LABS: CHLORIDE 105 mEq/L (98-107)
[2018-09-07] MEDS ORDERED: ONDANSETRON HCL 4MG/2ML INJ IV ONE (02:00)
[2018-09-07] MEDS ORDERED: MORPHINE SULFATE 4 MG/ML CPJ (NOT FOR IM USE) IV ONE (02:00)
[2018-09-07] MEDS ORDERED: FUROSEMIDE 40MG/4ML VIAL IVP ONE (02:00)
[2018-09-07 03:30] LABS: CLARITY URINE CLEAR (CLEAR); COLOR URINE YELLOW (YELLOW); KETONES URINE NEGATIVE (NEGATIVE); LEUKOCYTE ESTERASE URINE NEGATIVE (NEGATIVE); NITRITE URINE NEGATIVE (NEGATIVE); OCCULT BLOOD URINE 1+ (NEGATIVE); PROTEIN URINE 3+ (NEGATIVE); SPECIFIC GRAVITY URINE 1.019 (1.005-1.030); UROBILINOGEN URINE 0.2 E.U./dL (0.2-1.0)
[2018-09-07] MEDS ORDERED: LORAZEPAM 2MG/ML CPJ IV ONE (04:00)
[2018-09-07 05:09] LABS: BG BASE EXCESS -1.1 mmol/L (-2.0-2.0); BG BILEVEL POS AIRWAY PRESSURE 15/5; BG CARBOXYHEMOGLOBIN 1.2 % (0.5-1.5); BG DEOXYHEMOGLOBIN 8.4 % (0.0-5.0); BG FRACTION INSPIRED OXYGEN 35; BG HCO3 ACT 28.7 mmol/L (22.0-26.0); BG METHEMOGLOBIN 0.4 % (0.0-1.5); BG OXYGEN SATURATION 91.5 % (92.0-98.5); BG PCO2 76.2 mmHg (35.0-45.0); BG PH 7.194 (7.350-7.450); BG SAMPLE SITE LEFT RADIAL; BG TOTAL HEMOGLOBIN 12.4 g/dL (12.0-18.0); BG VENT MODE MASK - BIPAP
[2018-09-07] MEDS ORDERED: INSULIN LISPRO 100 UNITS/ML SUBCUT ONE (05:15)
[2018-09-07] MEDS ORDERED: DEXTROSE 50% WATER 50ML SYRINGE IV PRN ×2 (12:30→19:30)
[2018-09-07] MEDS: BLOOD SUGAR DIAGNOSTIC STRIP TEST SCH ×3 (12:30→20:37)
[2018-09-07] MEDS: INSULIN LISPRO 100 UNITS/ML SUBCUT SCH ×3 (13:16→20:50)
[2018-09-07 13:26] LABS: BG BASE EXCESS 1.5 mmol/L (-2.0-2.0); BG BILEVEL POS AIRWAY PRESSURE 15/5; BG CARBOXYHEMOGLOBIN 0.3 % (0.5-1.5); BG DEOXYHEMOGLOBIN 2.6 % (0.0-5.0); BG FRACTION INSPIRED OXYGEN 50; BG HCO3 ACT 29.2 mmol/L (22.0-26.0); BG METHEMOGLOBIN 0.1 % (0.0-1.5); BG OXYGEN SATURATION 97.4 % (92.0-98.5); BG PCO2 63.9 mmHg (35.0-45.0); BG PH 7.277 (7.350-7.450); BG PO2 102.4 mmHg (75.0-100.0); BG SAMPLE SITE RIGHT RADIAL; BG TOTAL HEMOGLOBIN 9.6 g/dL (12.0-18.0); BG VENT MODE MASK - BIPAP
[2018-09-07] MEDS: MORPHINE SULFATE 4 MG/ML CPJ (NOT FOR IM USE) IV PRN ×2 (14:57→21:54)
[2018-09-07] MEDS: IPRATROPIUM/ALBUTEROL 0.5-3(2.5)MG/3ML NEB HHN SCH (17:33)
[2018-09-07] MEDS ORDERED: CLONIDINE 0.1MG TABLET PO PRN (19:30)
[2018-09-07] MEDS ORDERED: ONDANSETRON HCL 4MG/2ML INJ IV PRN (19:30)
[2018-09-07] MEDS ORDERED: GUAIFENESIN 200MG/10ML SUGAR FREE UDC PO PRN (19:30)
[2018-09-07] MEDS ORDERED: IPRATROPIUM/ALBUTEROL 0.5-3(2.5)MG/3ML NEB INH PRN (19:30)
[2018-09-07] MEDS ORDERED: IPRATROPIUM/ALBUTEROL 0.5-3(2.5)MG/3ML NEB HHN SCH (19:30)
[2018-09-07] MEDS: ENOXAPARIN 40MG/0.4ML SYR SUBCUT SCH (20:36)
[2018-09-07] MEDS: AMLODIPINE 5MG TABLET PO SCH (20:37)
[2018-09-07] MEDS: LORAZEPAM 0.5MG TABLET PO PRN (20:38)
[2018-09-07] MEDS: DIPHENHYDRAMINE 50MG/ML VIAL IV PRN (20:51)
[2018-09-07] MEDS: BUDESONIDE 0.5MG/2ML NEB HHN SCH (21:12)
[2018-09-07] MEDS: SODIUM CHLORIDE 0.9% INJ 3ML FLUSH IVF SCH (21:53)
[2018-09-08] VITALS (11 sets, daily range): BP systolic 119–164; BP diastolic 48–83
[2018-09-08] MEDS: IPRATROPIUM/ALBUTEROL 0.5-3(2.5)MG/3ML NEB HHN SCH ×6 (00:38→20:44)
[2018-09-08] MEDS: MORPHINE SULFATE 4 MG/ML CPJ (NOT FOR IM USE) IV PRN ×3 (05:18→16:54)
[2018-09-08] MEDS: SODIUM CHLORIDE 0.9% INJ 3ML FLUSH IVF SCH ×3 (05:19→21:25)
[2018-09-08] MEDS: BLOOD SUGAR DIAGNOSTIC STRIP TEST SCH ×4 (07:30→21:00)
[2018-09-08] MEDS: AMLODIPINE 5MG TABLET PO SCH ×2 (08:46→21:24)
[2018-09-08] MEDS: GLIPIZIDE 10MG TABLET PO SCH ×2 (08:46→18:38)
[2018-09-08] MEDS: ASPIRIN 81MG EC TABLET PO SCH (08:47)
[2018-09-08] MEDS: ENOXAPARIN 40MG/0.4ML SYR SUBCUT SCH ×2 (08:47→21:25)
[2018-09-08] MEDS: INSULIN LISPRO 100 UNITS/ML SUBCUT SCH ×4 (08:48→21:41)
[2018-09-08] MEDS: BUDESONIDE 0.5MG/2ML NEB HHN SCH ×2 (08:58→20:45)
[2018-09-08] MEDS: DIPHENHYDRAMINE 50MG/ML VIAL IV PRN ×2 (12:35→21:24)
[2018-09-08] MEDS ORDERED: LIDOCAINE HCL/PF 1% 2ML VIAL ONE (15:24)
[2018-09-08] MEDS ORDERED: FUROSEMIDE 40MG/4ML VIAL IVP NR (17:00)
[2018-09-08] MEDS ORDERED: METOLAZONE 10MG TABLET PO NR (18:00)
[2018-09-08] MEDS: LORAZEPAM 0.5MG TABLET PO PRN (21:25)
[2018-09-09] VITALS (10 sets, daily range): BP systolic 120–144; BP diastolic 46–78
[2018-09-09] MEDS: MORPHINE SULFATE 4 MG/ML CPJ (NOT FOR IM USE) IV PRN ×4 (00:19→20:49)
[2018-09-09] MEDS: IPRATROPIUM/ALBUTEROL 0.5-3(2.5)MG/3ML NEB HHN SCH ×6 (00:21→21:16)
[2018-09-09] MEDS: LORAZEPAM 0.5MG TABLET PO PRN (04:16)
[2018-09-09] MEDS: DIPHENHYDRAMINE 50MG/ML VIAL IV PRN ×3 (04:25→20:04)
[2018-09-09] MEDS: SODIUM CHLORIDE 0.9% INJ 3ML FLUSH IVF SCH ×3 (06:00→22:30)
[2018-09-09] MEDS: BLOOD SUGAR DIAGNOSTIC STRIP TEST SCH ×4 (08:01→20:49)
[2018-09-09] MEDS: BUDESONIDE 0.5MG/2ML NEB HHN SCH (08:26)
[2018-09-09] MEDS: ASPIRIN 81MG EC TABLET PO SCH (08:32)
[2018-09-09] MEDS: AMLODIPINE 5MG TABLET PO SCH ×2 (08:32→20:49)
[2018-09-09] MEDS: ENOXAPARIN 40MG/0.4ML SYR SUBCUT SCH ×2 (08:32→20:49)
[2018-09-09] MEDS: GLIPIZIDE 10MG TABLET PO SCH ×2 (08:32→17:22)
[2018-09-09] MEDS: INSULIN LISPRO 100 UNITS/ML SUBCUT SCH ×4 (08:33→21:34)
[2018-09-09] MEDS ORDERED: FUROSEMIDE 40MG/4ML VIAL IVP SCH (10:15)
[2018-09-09] MEDS: INSULIN GLARGINE UD 100 UNITS/ML SYR SUBCUT SCH ×2 (11:33→22:34)
[2018-09-09 13:19] LABS: BASOPHILS % 0.4 % (0.0-2.0); HEMATOCRIT. 25.3 % (36.0-48.0); HEMOGLOBIN. 8.2 g/dL (12.0-16.0); LYMPHOCYTES % 13.8 % (20.0-50.0); MEAN CORPUSCULAR VOLUME 77.8 fL (81.0-99.0); MEAN PLATELET VOLUME 8.3 fl (7.4-10.4); MONOCYTES % 8.3 % (2.0-8.0); NEUTROPHILS % 75.5 % (40.0-76.0); PLATELET 224 x1000/uL (130-400); RED BLOOD CELL COUNT 3.25 mill/uL (4.2-5.4); RED CELL DISTRIBUTION WIDTH 17.4 % (11.6-14.6)
[2018-09-09] MEDS: FERROUS SULFATE 325MG TABLET PO SCH ×2 (14:42→17:22)
[2018-09-09] MEDS: DOCUSATE SODIUM 100MG CAPSULE PO SCH (17:21)
[2018-09-09] MEDS: FUROSEMIDE 40MG/4ML VIAL IVP SCH (17:22)
[2018-09-09] MEDS: LORAZEPAM 1MG TABLET PO PRN (22:34)
[2018-09-10] VITALS (12 sets, daily range): BP systolic 113–151; BP diastolic 41–82
[2018-09-10] MEDS: IPRATROPIUM/ALBUTEROL 0.5-3(2.5)MG/3ML NEB HHN SCH ×6 (00:34→20:35)
[2018-09-10] MEDS: BUDESONIDE 0.5MG/2ML NEB HHN SCH ×3 (00:35→20:35)
[2018-09-10] MEDS: DIPHENHYDRAMINE 50MG/ML VIAL IV PRN ×4 (01:31→19:10)
[2018-09-10] MEDS: MORPHINE SULFATE 4 MG/ML CPJ (NOT FOR IM USE) IV PRN ×4 (02:56→22:05)
[2018-09-10] MEDS: SODIUM CHLORIDE 0.9% INJ 3ML FLUSH IVF SCH ×3 (05:26→21:58)
[2018-09-10 06:24] LABS: HEMATOCRIT. 25.6 % (36.0-48.0); HEMOGLOBIN. 8.2 g/dL (12.0-16.0); MEAN CORPUSCULAR HEMOGLOBIN 24.8 pg (28.0-32.0); MEAN CORPUSCULAR VOLUME 77.4 fL (81.0-99.0); MEAN PLATELET VOLUME 8.4 fl (7.4-10.4); PLATELET 241 x1000/uL (130-400); RED BLOOD CELL COUNT 3.31 mill/uL (4.2-5.4); RED CELL DISTRIBUTION WIDTH 17.7 % (11.6-14.6)
[2018-09-10] MEDS: BLOOD SUGAR DIAGNOSTIC STRIP TEST SCH ×4 (08:47→21:24)
[2018-09-10] MEDS: FUROSEMIDE 40MG/4ML VIAL IVP SCH ×2 (09:08→19:11)
[2018-09-10] MEDS: INSULIN GLARGINE UD 100 UNITS/ML SYR SUBCUT SCH ×2 (09:10→21:59)
[2018-09-10] MEDS: INSULIN LISPRO 100 UNITS/ML SUBCUT SCH ×4 (09:10→22:01)
[2018-09-10] MEDS: FERROUS SULFATE 325MG TABLET PO SCH ×3 (09:11→18:24)
[2018-09-10] MEDS: ASPIRIN 81MG EC TABLET PO SCH (09:11)
[2018-09-10] MEDS: DOCUSATE SODIUM 100MG CAPSULE PO SCH ×2 (09:11→18:24)
[2018-09-10] MEDS: GLIPIZIDE 10MG TABLET PO SCH ×2 (09:11→18:24)
[2018-09-10] MEDS: AMLODIPINE 5MG TABLET PO SCH ×2 (09:13→22:06)
[2018-09-10] MEDS: ENOXAPARIN 40MG/0.4ML SYR SUBCUT SCH ×2 (09:14→21:56)
[2018-09-10 14:33] LABS: PLATELET ESTIMATE NORMAL
[2018-09-10] MEDS: POTASSIUM CHLORIDE 20MEQ TABLET SR PO SCH ×2 (15:16→21:57)
[2018-09-10] MEDS ORDERED: PIPERACILLIN/TAZ 2.25G PREMIX 50 ML IV SCH (18:00)
[2018-09-10] MEDS: PREDNISONE 20MG TABLET PO SCH (18:24)
[2018-09-10] MEDS: PIPERACILLIN/TAZ 3.375G PREMIX 50 ML IV SCH (20:13)
[2018-09-10 20:45] LABS: *AMPHETAMINES SCREEN URINE NEGATIVE (NEGATIVE); *BARBITURATES SCREEN URINE NEGATIVE (NEGATIVE); *BENZODIAZEPINES SCREEN URINE NEGATIVE (NEGATIVE); *COCAINE SCREEN URINE NEGATIVE (NEGATIVE); METHADONE URINE SCREEN NEGATIVE (NEGATIVE); OPIATES URINE SCREEN PRESUMTIVE POSITIVE (NEGATIVE)
[2018-09-10 20:46] LABS: CANNABINOID URINE SCREEN NEGATIVE (NEGATIVE); PHENCYCLIDINE URINE SCREEN NEGATIVE (NEGATIVE)
[2018-09-11] VITALS (9 sets, daily range): BP systolic 120–151; BP diastolic 48–71
[2018-09-11] MEDS: PIPERACILLIN/TAZ 3.375G PREMIX 50 ML IV SCH ×4 (00:29→18:08)
[2018-09-11] MEDS: DIPHENHYDRAMINE 50MG/ML VIAL IV PRN ×5 (00:29→21:00)
[2018-09-11] MEDS: IPRATROPIUM/ALBUTEROL 0.5-3(2.5)MG/3ML NEB HHN SCH ×5 (01:45→21:27)
[2018-09-11] MEDS: MORPHINE SULFATE 4 MG/ML CPJ (NOT FOR IM USE) IV PRN ×4 (02:23→21:01)
[2018-09-11] MEDS: FUROSEMIDE 40MG/4ML VIAL IVP SCH ×2 (06:47→16:49)
[2018-09-11] MEDS: SODIUM CHLORIDE 0.9% INJ 3ML FLUSH IVF SCH ×3 (06:48→21:06)
[2018-09-11 06:58] LABS: CHLORIDE 101 mEq/L (98-107)
[2018-09-11 07:14] LABS: LDL CHOLESTEROL 124 mg/dL (5-100)
[2018-09-11 07:15] LABS: CREATINE KINASE 48 IU/L (26-192); CREATINE KINASE MB FRACTION < 1.0 ng/mL (0.5-3.6); HDL CHOLESTEROL 47 mg/dL (40-59)
[2018-09-11] MEDS: BLOOD SUGAR DIAGNOSTIC STRIP TEST SCH ×4 (07:30→20:39)
[2018-09-11] MEDS: PREDNISONE 20MG TABLET PO SCH (08:48)
[2018-09-11] MEDS: POTASSIUM CHLORIDE 20MEQ TABLET SR PO SCH ×2 (08:48→16:49)
[2018-09-11] MEDS: ASPIRIN 81MG EC TABLET PO SCH (08:48)
[2018-09-11] MEDS: FERROUS SULFATE 325MG TABLET PO SCH ×3 (08:48→16:49)
[2018-09-11] MEDS: INSULIN LISPRO 100 UNITS/ML SUBCUT SCH ×4 (08:48→21:05)
[2018-09-11] MEDS: ENOXAPARIN 40MG/0.4ML SYR SUBCUT SCH ×2 (08:49→20:39)
[2018-09-11] MEDS: DOCUSATE SODIUM 100MG CAPSULE PO SCH ×2 (08:49→16:49)
[2018-09-11] MEDS: GLIPIZIDE 10MG TABLET PO SCH ×2 (08:49→16:49)
[2018-09-11] MEDS: AMLODIPINE 5MG TABLET PO SCH ×2 (08:49→20:38)
[2018-09-11] MEDS: INSULIN GLARGINE UD 100 UNITS/ML SYR SUBCUT SCH ×2 (10:20→21:06)
[2018-09-11] MEDS: LORAZEPAM 1MG TABLET PO PRN (16:52)
[2018-09-11] MEDS ORDERED: INSULIN LISPRO 100 UNITS/ML SUBCUT NR (18:30)
[2018-09-11] MEDS ORDERED: LORAZEPAM 1MG TABLET PO PRN (21:45)
[2018-09-12] VITALS: BP 128/51
[2018-09-12] MEDS: PIPERACILLIN/TAZ 3.375G PREMIX 50 ML IV SCH ×3 (00:50→12:31)
[2018-09-12] MEDS: DIPHENHYDRAMINE 50MG/ML VIAL IV PRN ×3 (00:57→13:56)
[2018-09-12] MEDS: IPRATROPIUM/ALBUTEROL 0.5-3(2.5)MG/3ML NEB HHN SCH ×3 (02:10→12:47)
[2018-09-12] MEDS: MORPHINE SULFATE 4 MG/ML CPJ (NOT FOR IM USE) IV PRN ×2 (03:10→11:02)
[2018-09-12 04:00] VITALS: BP 118/55
[2018-09-12] MEDS: GLIPIZIDE 10MG TABLET PO SCH ×2 (06:45→17:10)
[2018-09-12] MEDS: SODIUM CHLORIDE 0.9% INJ 3ML FLUSH IVF SCH ×2 (06:46→14:00)
[2018-09-12] MEDS: BLOOD SUGAR DIAGNOSTIC STRIP TEST SCH ×3 (06:46→17:24)
[2018-09-12] MEDS: INSULIN LISPRO 100 UNITS/ML SUBCUT SCH ×3 (07:02→18:01)
[2018-09-12 08:00] VITALS: BP 123/55
[2018-09-12] MEDS: FERROUS SULFATE 325MG TABLET PO SCH ×3 (08:22→17:24)
[2018-09-12] MEDS: AMLODIPINE 5MG TABLET PO SCH (08:24)
[2018-09-12] MEDS: ASPIRIN 81MG EC TABLET PO SCH (08:24)
[2018-09-12] MEDS: DOCUSATE SODIUM 100MG CAPSULE PO SCH ×2 (08:24→17:00)
[2018-09-12] MEDS: PREDNISONE 20MG TABLET PO SCH (08:25)
[2018-09-12] MEDS: POTASSIUM CHLORIDE 20MEQ TABLET SR PO SCH ×2 (08:25→17:00)
[2018-09-12] MEDS: FUROSEMIDE 40MG/4ML VIAL IVP SCH ×2 (08:25→17:15)
[2018-09-12] MEDS: ENOXAPARIN 40MG/0.4ML SYR SUBCUT SCH (08:25)
[2018-09-12 09:03] LABS: HEMATOCRIT 25.6 % (36.0-48.0); HEMOGLOBIN 8.3 g/dL (12.0-16.0); MEAN CORPUSCULAR HEMOGLOBIN 25.2 pg (28.0-32.0); MEAN CORPUSCULAR VOLUME 77.3 fL (81.0-99.0); PLATELET 264 x1000/uL (130-400); RED BLOOD CELL COUNT 3.31 mill/uL (4.2-5.4); RED CELL DISTRIBUTION WIDTH 17.7 % (11.6-14.6)
[2018-09-12] MEDS: INSULIN GLARGINE UD 100 UNITS/ML SYR SUBCUT SCH (09:55)
[2018-09-12 12:00] VITALS: BP 143/65
== END 2018-09-12 18:30 | disposition home or self-care (01) | DRG 133 ==
LOC: ER 00:31 → 5EST 05:07 → ENRESERV 09:45 → 8WST 09-11 10:35
PROVIDERS: ADMIT Internal Medicine; ATTEND Internal Medicine
PROC: 5A09357 Assistance with Respiratory Ventilation, Less than 24 Consecutive Hours, Continuous Positive Airway Pressure (ICD-10-PCS; 2018-09-07)
PROC: 5A09357 Assistance with Respiratory Ventilation, Less than 24 Consecutive Hours, Continuous Positive Airway Pressure (ICD-10-PCS; 2018-09-08)
PROC: 5A09357 Assistance with Respiratory Ventilation, Less than 24 Consecutive Hours, Continuous Positive Airway Pressure (ICD-10-PCS; 2018-09-09)
PROC: 5A09357 Assistance with Respiratory Ventilation, Less than 24 Consecutive Hours, Continuous Positive Airway Pressure (ICD-10-PCS; principal; 2018-09-10)
DX: J96.01 Acute respiratory failure with hypoxia (principal); E43 Unspecified severe protein-calorie malnutrition; I50.33 Acute on chronic diastolic (congestive) heart failure; J18.9 Pneumonia, unspecified organism; E11.22 Type 2 diabetes mellitus with diabetic chronic kidney disease; I13.0 Hypertensive heart and chronic kidney disease with heart failure and stage 1 through stage 4 chronic kidney disease, or unspecified chronic kidney disease; I27.20 Pulmonary hypertension, unspecified; E66.01 Morbid (severe) obesity due to excess calories; E11.65 Type 2 diabetes mellitus with hyperglycemia; J96.02 Acute respiratory failure with hypercapnia; J44.1 Chronic obstructive pulmonary disease with (acute) exacerbation; E11.9 Type 2 diabetes mellitus without complications; D64.9 Anemia, unspecified; J44.0 Chronic obstructive pulmonary disease with (acute) lower respiratory infection; E78.5 Hyperlipidemia, unspecified; F41.1 Generalized anxiety disorder; G47.30 Sleep apnea, unspecified; N18.9 Chronic kidney disease, unspecified; Z83.3 Family history of diabetes mellitus; Z87.891 Personal history of nicotine dependence; Z91.19 Patient's noncompliance with other medical treatment and regimen; Z99.81 Dependence on supplemental oxygen; Z98.891 History of uterine scar from previous surgery; Z68.43 Body mass index [BMI] 50.0-59.9, adult
CPT/HCPCS: 36415; 36600; 71045; 78580; 80048; 80061; 80305; 82375; 82550; 82553; 82805; 82962; 83036; 83735; 83880; 84145; 84443; 84484; 85027; 85379; 93005; 93970; 94640; 96374; 99285; J1200; J1650; J1815; J1940; J2060; J2270; J2405; J2543; J3490; J7050; J7512; J7611; J7620; J7626

== ENCOUNTER 2018-10-23 08:07 | Emergency (ER) | payer MEDICARE ==
[~2018-10-23] VITALS: Ht 160 cm; Wt 137.0 kg
[~2018-10-23 08:07] MED LIST changes: -FURO-151 PO
[2018-10-23 09:04] LABS: BASOPHILS % 0.4 % (0.0-2.0); EOSINOPHILS % 3.1 % (0.0-5.0); HEMATOCRIT. 28.4 % (36.0-48.0); LYMPHOCYTES % 15.2 % (20.0-50.0); MEAN CORPUSCULAR HEMOGLOBIN 23.9 pg (28.0-32.0); MEAN CORPUSCULAR VOLUME 75.3 fL (81.0-99.0); MEAN PLATELET VOLUME 7.3 fl (7.4-10.4); MONOCYTES % 8.2 % (2.0-8.0); NEUTROPHILS % 73.1 % (40.0-76.0); PLATELET 240 x1000/uL (130-400); RED BLOOD CELL COUNT 3.78 mill/uL (4.2-5.4); RED CELL DISTRIBUTION WIDTH 16.9 % (11.6-14.6)
[2018-10-23 09:12] LABS: CHLORIDE 104 mEq/L (98-107)
[2018-10-23] MEDS ORDERED: IPRATROPIUM BROMIDE (0.02%) 0.5MG/2.5ML NEB HHN STA (09:28)
[2018-10-23] MEDS ORDERED: METHYLPREDNISOLONE SOD SUCC 125 MG/2 ML VIAL IV STA (09:28)
[2018-10-23] MEDS ORDERED: ALBUTEROL (0.083%) 2.5MG/3ML NEB HHN SCH (09:30)
[2018-10-23] MEDS ORDERED: ALBUTEROL (0.083%) 2.5MG/3ML NEB ONE (09:36)
[2018-10-23] MEDS ORDERED: IPRATROPIUM BROMIDE (0.02%) 0.5MG/2.5ML NEB ONE (09:36)
[2018-10-23 09:44] LABS: BG BASE EXCESS 2.6 mmol/L (-2.0-2.0); BG CARBOXYHEMOGLOBIN 0.6 % (0.5-1.5); BG DEOXYHEMOGLOBIN 5.2 % (0.0-5.0); BG FRACTION INSPIRED OXYGEN 32; BG HCO3 ACT 28.7 mmol/L (22.0-26.0); BG METHEMOGLOBIN 0.3 % (0.0-1.5); BG OXYGEN SATURATION 94.8 % (92.0-98.5); BG OXYHEMOGLOBIN 93.9 % (94.0-97.0); BG PCO2 52.3 mmHg (35.0-45.0); BG PH 7.357 (7.350-7.450); BG PO2 77.1 mmHg (75.0-100.0); BG SAMPLE SITE RIGHT RADIAL; BG TOTAL HEMOGLOBIN 9.7 g/dL (12.0-18.0); BG VENT MODE NASAL CANNULA
[2018-10-23] MEDS ORDERED: FUROSEMIDE 40MG/4ML VIAL IVP ONE (10:15)
[2018-10-23 13:20] VITALS: BP 140/62
== END 2018-10-23 19:00 | disposition left against medical advice (07) ==
LOC: ER 08:07 → CANRESERV 12:14 → ENRESERV 12:14 → CANRESERV 14:10 → CANBEDREQ 18:39 → ER 19:00
DX: J96.02 Acute respiratory failure with hypercapnia (principal); J44.1 Chronic obstructive pulmonary disease with (acute) exacerbation; I27.20 Pulmonary hypertension, unspecified; E11.22 Type 2 diabetes mellitus with diabetic chronic kidney disease; E11.65 Type 2 diabetes mellitus with hyperglycemia; I13.0 Hypertensive heart and chronic kidney disease with heart failure and stage 1 through stage 4 chronic kidney disease, or unspecified chronic kidney disease; N18.9 Chronic kidney disease, unspecified; I50.33 Acute on chronic diastolic (congestive) heart failure; E78.00 Pure hypercholesterolemia, unspecified; D63.1 Anemia in chronic kidney disease; Z91.14 Patient's other noncompliance with medication regimen
CPT/HCPCS: 36415; 36600; 71045; 80053; 82375; 82805; 83880; 84484; 85025; 93005; 94640; 96374; 96375; 99284; J1940; J2930; J7611; Z7610

== ENCOUNTER 2018-11-12 20:28 | Inpatient (IN) | payer MEDICARE, MEDICAID ==
[~2018-11-12] VITALS: Ht 165.1 cm; Wt 144.2 kg
[~2018-11-12 20:28] MED LIST changes: -ASPI-1159 PO; +ASPI-1393 PO
[2018-11-12] MEDS ORDERED: KETOROLAC 30MG/ML VIAL IV STA (20:57)
[2018-11-12] MEDS ORDERED: ONDANSETRON HCL 4MG/2ML INJ IV STA (20:57)
[2018-11-12] MEDS ORDERED: IPRATROPIUM BROMIDE (0.02%) 0.5MG/2.5ML NEB HHN STA (20:57)
[2018-11-12] MEDS ORDERED: ALBUTEROL (0.083%) 2.5MG/3ML NEB HHN STA (20:57)
[2018-11-12] MEDS ORDERED: MORPHINE SULFATE 4 MG/ML CPJ (NOT FOR IM USE) IV ONE (21:00)
[2018-11-12 21:20] LABS: CHLORIDE 102 mEq/L (98-107)
[2018-11-12 21:23] LABS: BASOPHILS % 0.6 % (0.0-2.0); EOSINOPHILS % 1.8 % (0.0-5.0); HEMATOCRIT. 24.8 % (36.0-48.0); HEMOGLOBIN. 7.9 g/dL (12.0-16.0); LYMPHOCYTES % 11.5 % (20.0-50.0); MEAN CORPUSCULAR HEMOGLOBIN 24.7 pg (28.0-32.0); MEAN CORPUSCULAR VOLUME 77.3 fL (81.0-99.0); MEAN PLATELET VOLUME 8.6 fl (7.4-10.4); MONOCYTES % 8.5 % (2.0-8.0); NEUTROPHILS % 77.6 % (40.0-76.0); PLATELET 252 x1000/uL (130-400); RED BLOOD CELL COUNT 3.21 mill/uL (4.2-5.4); RED CELL DISTRIBUTION WIDTH 17.9 % (11.6-14.6)
[2018-11-12 21:35] LABS: BG BASE EXCESS 12.4 mmol/L (-2.0-2.0); BG CARBOXYHEMOGLOBIN 0.5 % (0.5-1.5); BG DEOXYHEMOGLOBIN 0.6 % (0.0-5.0); BG FRACTION INSPIRED OXYGEN 100; BG METHEMOGLOBIN 0.3 % (0.0-1.5); BG OXYGEN SATURATION 99.4 % (92.0-98.5); BG OXYHEMOGLOBIN 98.6 % (94.0-97.0); BG PCO2 82.7 mmHg (35.0-45.0); BG PH 7.313 (7.350-7.450); BG SAMPLE SITE RIGHT BRACHIAL; BG TOTAL HEMOGLOBIN 9.5 g/dL (12.0-18.0); BG VENT MODE MASK - NRB
[2018-11-12] MEDS ORDERED: ALBUTEROL (0.5%) 2.5MG/0.5ML NEB HHN ONE (22:00)
[2018-11-12 22:54] LABS: CLARITY URINE CLOUDY (CLEAR); COLOR URINE YELLOW (YELLOW); KETONES URINE NEGATIVE (NEGATIVE); LEUKOCYTE ESTERASE URINE 1+ (NEGATIVE); NITRITE URINE NEGATIVE (NEGATIVE); OCCULT BLOOD URINE 2+ (NEGATIVE); PH URINE 5.5 (4.5-8.0); PROTEIN URINE 4+ (NEGATIVE); SPECIFIC GRAVITY URINE 1.017 (1.005-1.030)
[2018-11-13] VITALS (15 sets, daily range): BP systolic 97–148; BP diastolic 45–75
[2018-11-13] MEDS ORDERED: ACETAMINOPHEN 325MG TABLET PO PRN (07:45)
[2018-11-13] MEDS ORDERED: DEXTROSE 50% WATER 50ML SYRINGE IV PRN (07:45)
[2018-11-13] MEDS: INSULIN LISPRO 100 UNITS/ML SUBCUT SCH ×4 (08:00→21:23)
[2018-11-13] MEDS ORDERED: GLIPIZIDE 10MG TABLET PO SCH (08:00)
[2018-11-13] MEDS: BLOOD SUGAR DIAGNOSTIC STRIP TEST SCH ×4 (08:00→20:25)
[2018-11-13] MEDS ORDERED: INSULIN LISPRO 100 UNITS/ML SUBCUT SCH (08:00)
[2018-11-13] MEDS ORDERED: [UNRECOGNIZED DRUG - OTHER] PO (08:54)
[2018-11-13] MEDS ORDERED: METO10TA8 PO (08:54)
[2018-11-13] MEDS ORDERED: VERA180C3 PO (08:54)
[2018-11-13] MEDS ORDERED: MICRO K PO (08:54)
[2018-11-13] MEDS ORDERED: NYSTOP TOP (08:57)
[2018-11-13] MEDS ORDERED: SODI45SP5 BOTHNSTRLS (08:57)
[2018-11-13] MEDS ORDERED: LORA1TAB PO (08:57)
[2018-11-13] MEDS ORDERED: ENOXAPARIN 40MG/0.4ML SYR SUBCUT SCH ×2 (09:00)
[2018-11-13] MEDS ORDERED: FUROSEMIDE 40MG/4ML VIAL IVP SCH (09:00)
[2018-11-13] MEDS: METHYLPREDNISOLONE SOD SUCC 40 MG/ML VIAL IV SCH (09:49)
[2018-11-13] MEDS: POTASSIUM CHLORIDE 20MEQ TABLET SR PO SCH (09:50)
[2018-11-13] MEDS: LORAZEPAM 1MG TABLET PO PRN ×2 (09:50→21:59)
[2018-11-13] MEDS: PANTOPRAZOLE 40MG DR TABLET PO SCH (09:50)
[2018-11-13] MEDS: IPRATROPIUM/ALBUTEROL 0.5-3(2.5)MG/3ML NEB HHN SCH ×4 (09:53→20:28)
[2018-11-13] MEDS ORDERED: MORPHINE SULFATE 2 MG/ML CPJ (NOT FOR IM USE) IV NR (12:03)
[2018-11-13] MEDS ORDERED: LOSARTAN POTASSIUM 25 MG TABLET PO NR (12:15)
[2018-11-13 12:30] LABS: HEMATOCRIT 25.1 % (36.0-48.0); HEMOGLOBIN 7.8 g/dL (12.0-16.0); MEAN CORPUSCULAR HEMOGLOBIN 24.5 pg (28.0-32.0); MEAN CORPUSCULAR VOLUME 78.5 fL (81.0-99.0); PLATELET 244 x1000/uL (130-400); RED CELL DISTRIBUTION WIDTH 18.5 % (11.6-14.6)
[2018-11-13 12:30] LABS: *AMPHETAMINES SCREEN URINE NEGATIVE (NEGATIVE); *BARBITURATES SCREEN URINE NEGATIVE (NEGATIVE); *BENZODIAZEPINES SCREEN URINE NEGATIVE (NEGATIVE)
[2018-11-13 12:31] LABS: *COCAINE SCREEN URINE NEGATIVE (NEGATIVE); CANNABINOID URINE SCREEN NEGATIVE (NEGATIVE); METHADONE URINE SCREEN NEGATIVE (NEGATIVE); OPIATES URINE SCREEN PRESUMTIVE POSITIVE (NEGATIVE); PHENCYCLIDINE URINE SCREEN NEGATIVE (NEGATIVE)
[2018-11-13] MEDS: FUROSEMIDE 40MG/4ML VIAL IVP SCH ×2 (12:32→21:21)
[2018-11-13] MEDS: METOLAZONE 2.5MG TABLET PO SCH (12:32)
[2018-11-13 12:47] LABS: BG BASE EXCESS 11.1 mmol/L (-2.0-2.0); BG BILEVEL POS AIRWAY PRESSURE 15/5; BG CARBOXYHEMOGLOBIN 1.3 % (0.5-1.5); BG FRACTION INSPIRED OXYGEN 35; BG METHEMOGLOBIN 0.1 % (0.0-1.5); BG OXYGEN SATURATION 87.8 % (92.0-98.5); BG OXYHEMOGLOBIN 86.6 % (94.0-97.0); BG PCO2 75.6 mmHg (35.0-45.0); BG PO2 54.3 mmHg (75.0-100.0); BG SAMPLE SITE RIGHT RADIAL; BG TOTAL HEMOGLOBIN 9.2 g/dL (12.0-18.0); BG VENT MODE MASK - BIPAP; BG VENT RATE 16 set
[2018-11-13 12:57] LABS: INR 1.1
[2018-11-13 14:17] LABS: TOTAL IRON BINDING CAPACITY 244 ug/dL (250-450)
[2018-11-13] MEDS: HYDROCODONE/APAP 7.5/325MG 1 TAB TABLET PO PRN (17:39)
[2018-11-14] VITALS (10 sets, daily range): BP systolic 3–169; BP diastolic 54–89
[2018-11-14] MEDS: IPRATROPIUM/ALBUTEROL 0.5-3(2.5)MG/3ML NEB HHN SCH ×6 (00:24→22:04)
[2018-11-14 00:28] LABS: HEMATOCRIT 23.8 % (36.0-48.0); HEMOGLOBIN 7.9 g/dL (12.0-16.0)
[2018-11-14] MEDS: HYDROCODONE/APAP 7.5/325MG 1 TAB TABLET PO PRN ×4 (03:17→21:36)
[2018-11-14] MEDS: BLOOD SUGAR DIAGNOSTIC STRIP TEST SCH ×4 (06:18→21:00)
[2018-11-14] MEDS: FERROUS SULFATE 325MG TABLET PO SCH ×3 (06:29→16:37)
[2018-11-14] MEDS: FUROSEMIDE 40MG/4ML VIAL IVP SCH ×2 (06:29→14:14)
[2018-11-14] MEDS: PANTOPRAZOLE 40MG DR TABLET PO SCH (06:29)
[2018-11-14] MEDS: INSULIN LISPRO 100 UNITS/ML SUBCUT SCH ×4 (06:35→21:12)
[2018-11-14 06:36] LABS: HEMOGLOBIN 8.1 g/dL (12.0-16.0); MEAN CORPUSCULAR HEMOGLOBIN 25.2 pg (28.0-32.0); MEAN CORPUSCULAR VOLUME 78.1 fL (81.0-99.0); PLATELET 254 x1000/uL (130-400); RED BLOOD CELL COUNT 3.21 mill/uL (4.2-5.4); RED CELL DISTRIBUTION WIDTH 17.9 % (11.6-14.6)
[2018-11-14] MEDS: METHYLPREDNISOLONE SOD SUCC 40 MG/ML VIAL IV SCH (09:01)
[2018-11-14] MEDS: METOLAZONE 2.5MG TABLET PO SCH (09:01)
[2018-11-14] MEDS: LOSARTAN POTASSIUM 25 MG TABLET PO SCH (09:01)
[2018-11-14] MEDS: POTASSIUM CHLORIDE 20MEQ TABLET SR PO SCH (09:01)
[2018-11-14] MEDS: LORAZEPAM 1MG TABLET PO PRN ×2 (09:21→21:14)
[2018-11-14 10:14] LABS: BG BASE EXCESS 8.7 mmol/L (-2.0-2.0); BG BILEVEL POS AIRWAY PRESSURE 18/5; BG CARBOXYHEMOGLOBIN 0.8 % (0.5-1.5); BG DEOXYHEMOGLOBIN 2.6 % (0.0-5.0); BG FRACTION INSPIRED OXYGEN 45; BG HCO3 ACT 34.5 mmol/L (22.0-26.0); BG METHEMOGLOBIN 0.1 % (0.0-1.5); BG OXYGEN SATURATION 97.4 % (92.0-98.5); BG OXYHEMOGLOBIN 96.5 % (94.0-97.0); BG PCO2 54.6 mmHg (35.0-45.0); BG PH 7.418 (7.350-7.450); BG PO2 100.8 mmHg (75.0-100.0); BG SAMPLE SITE RIGHT RADIAL; BG TOTAL HEMOGLOBIN 9.5 g/dL (12.0-18.0); BG VENT MODE MASK - BIPAP; BG VENT RATE 18 set
[2018-11-14] MEDS ORDERED: SODIUM BICARBONATE 4% (2.4MEQ) 5ML VIAL IV ONE (10:22)
[2018-11-15] VITALS (10 sets, daily range): BP systolic 136–176; BP diastolic 68–80
[2018-11-15] MEDS: IPRATROPIUM/ALBUTEROL 0.5-3(2.5)MG/3ML NEB HHN SCH ×6 (01:10→20:40)
[2018-11-15] MEDS: FUROSEMIDE 40MG/4ML VIAL IVP SCH ×2 (02:13→09:26)
[2018-11-15] MEDS: BLOOD SUGAR DIAGNOSTIC STRIP TEST SCH ×4 (06:36→21:00)
[2018-11-15 07:41] LABS: HEMOGLOBIN 8.7 g/dL (12.0-16.0); MEAN CORPUSCULAR VOLUME 77.8 fL (81.0-99.0); PLATELET 303 x1000/uL (130-400); RED BLOOD CELL COUNT 3.47 mill/uL (4.2-5.4); RED CELL DISTRIBUTION WIDTH 18.6 % (11.6-14.6)
[2018-11-15] MEDS: INSULIN LISPRO 100 UNITS/ML SUBCUT SCH ×4 (08:04→22:05)
[2018-11-15 08:23] LABS: A/G RATIO 0.6 (0.7-1.7); ALBUMIN 2.2 g/dL (2.9-4.4); ALPHA-1-GLOBULIN 0.3 g/dL (0.0-0.4); BETA GLOBULIN 1.2 g/dL (0.7-1.3); GAMMA GLOBULINS 1.3 g/dL (0.4-1.8); GLOBULIN TOTAL 3.8 g/dL (2.2-3.9); M-SPIKE Not Observed g/dL (Not Observed)
[2018-11-15] MEDS: LOSARTAN POTASSIUM 25 MG TABLET PO SCH (09:26)
[2018-11-15] MEDS: FERROUS SULFATE 325MG TABLET PO SCH ×3 (09:26→17:24)
[2018-11-15] MEDS: METHYLPREDNISOLONE SOD SUCC 40 MG/ML VIAL IV SCH (09:26)
[2018-11-15] MEDS: METOLAZONE 2.5MG TABLET PO SCH (09:27)
[2018-11-15] MEDS: POTASSIUM CHLORIDE 20MEQ TABLET SR PO SCH (09:27)
[2018-11-15] MEDS: FAMOTIDINE 20MG TABLET PO SCH (09:27)
[2018-11-15] MEDS: LORAZEPAM 1MG TABLET PO PRN ×2 (09:27→21:39)
[2018-11-15 09:56] LABS: BG CARBOXYHEMOGLOBIN 0.6 % (0.5-1.5); BG DEOXYHEMOGLOBIN 5.1 % (0.0-5.0); BG FRACTION INSPIRED OXYGEN 36; BG HCO3 ACT 41.8 mmol/L (22.0-26.0); BG METHEMOGLOBIN 0.1 % (0.0-1.5); BG OXYGEN SATURATION 94.9 % (92.0-98.5); BG OXYHEMOGLOBIN 94.2 % (94.0-97.0); BG PCO2 58.3 mmHg (35.0-45.0); BG PH 7.473 (7.350-7.450); BG SAMPLE SITE RIGHT RADIAL; BG TOTAL HEMOGLOBIN 9.9 g/dL (12.0-18.0); BG VENT MODE NASAL CANNULA
[2018-11-15] MEDS ORDERED: SODIUM BICARBONATE 4% (2.4MEQ) 5ML VIAL IV ONE (12:46)
[2018-11-15 13:11] LABS: ALBUMIN URINE 63.9 % (.); ALPHA-1-GLOBULIN URINE 1.3 % (.); ALPHA-2-GLOBULIN URINE 6.1 % (.); BETA GLOBULIN URINE 11.9 % (.); GAMMA GLOBULIN URINE 16.9 % (.); TOTAL PROTEIN RANDOM URINE 403.1 mg/dL (Not Estab.)
[2018-11-15] MEDS ORDERED: SORBITOL 70% SOLN 30ML PO NR (15:45)
[2018-11-15] MEDS: HYDROCODONE/APAP 7.5/325MG 1 TAB TABLET PO PRN ×2 (17:08→22:39)
[2018-11-16] VITALS (7 sets, daily range): BP systolic 141–149; BP diastolic 63–71
[2018-11-16] MEDS: IPRATROPIUM/ALBUTEROL 0.5-3(2.5)MG/3ML NEB HHN SCH ×3 (02:11→09:26)
[2018-11-16] MEDS: FUROSEMIDE 40MG/4ML VIAL IVP SCH (02:58)
[2018-11-16 06:00] LABS: HEMATOCRIT 26.3 % (36.0-48.0); HEMOGLOBIN 8.5 g/dL (12.0-16.0); MEAN CORPUSCULAR HEMOGLOBIN 25.1 pg (28.0-32.0); MEAN CORPUSCULAR VOLUME 77.9 fL (81.0-99.0); PLATELET 301 x1000/uL (130-400); RED BLOOD CELL COUNT 3.37 mill/uL (4.2-5.4); RED CELL DISTRIBUTION WIDTH 18.4 % (11.6-14.6)
[2018-11-16] MEDS: HYDROCODONE/APAP 7.5/325MG 1 TAB TABLET PO PRN (06:29)
[2018-11-16] MEDS: BLOOD SUGAR DIAGNOSTIC STRIP TEST SCH ×2 (06:32→11:41)
[2018-11-16] MEDS: INSULIN LISPRO 100 UNITS/ML SUBCUT SCH ×2 (07:53→12:24)
[2018-11-16] MEDS: FAMOTIDINE 20MG TABLET PO SCH (08:02)
[2018-11-16] MEDS: LOSARTAN POTASSIUM 25 MG TABLET PO SCH (08:02)
[2018-11-16] MEDS: POTASSIUM CHLORIDE 20MEQ TABLET SR PO SCH (08:02)
[2018-11-16] MEDS: METOLAZONE 2.5MG TABLET PO SCH (08:02)
[2018-11-16] MEDS: FERROUS SULFATE 325MG TABLET PO SCH ×2 (08:44→12:20)
[2018-11-16] MEDS ORDERED: PREDNISONE 20MG TABLET PO SCH (09:00)
[2018-11-16 09:26] LABS: BG BASE EXCESS 14.1 mmol/L (-2.0-2.0); BG CARBOXYHEMOGLOBIN 0.6 % (0.5-1.5); BG DEOXYHEMOGLOBIN 3.7 % (0.0-5.0); BG FRACTION INSPIRED OXYGEN 28; BG HCO3 ACT 39.4 mmol/L (22.0-26.0); BG METHEMOGLOBIN 0.3 % (0.0-1.5); BG OXYGEN SATURATION 96.3 % (92.0-98.5); BG OXYHEMOGLOBIN 95.4 % (94.0-97.0); BG PCO2 54.5 mmHg (35.0-45.0); BG PH 7.477 (7.350-7.450); BG PO2 85.7 mmHg (75.0-100.0); BG SAMPLE SITE RIGHT RADIAL; BG TOTAL HEMOGLOBIN 9.3 g/dL (12.0-18.0); BG VENT MODE NASAL CANNULA
[2018-11-16] MEDS: LORAZEPAM 1MG TABLET PO PRN (12:21)
[2018-11-16] MEDS ORDERED: FUROSEMIDE 40MG TABLET PO SCH (21:00)
[2018-11-17] MEDS ORDERED: METOLAZONE 5MG TABLET PO SCH (09:00)
[2018-11-19 17:15] LABS: ANA IFA Negative (.)
[2018-11-20 05:19] LABS: ALBUMIN URINE 49.1 % (.); ALPHA-1-GLOBULIN URINE 9.4 % (.); ALPHA-2-GLOBULIN URINE 9.6 % (.); GAMMA GLOBULIN URINE 16.9 % (.); TOTAL PROTEIN RANDOM URINE 221.5 mg/dL (Not Estab.)
[2018-11-20 08:19] LABS: COMPLEMENT C3 224 mg/dL (82-167)
[2018-11-20] MEDS ORDERED: PREDNISONE 20MG TABLET PO SCH (09:00)
[2018-11-24] MEDS ORDERED: PREDNISONE 10MG TABLET PO SCH (09:00)
== END 2018-11-16 15:49 | DRG 133 ==
LOC: ER 20:28 → 3WST 23:57 → EDBEDREQ 11-13 00:17 → EDBEDREQTM 11-13 00:17 → EDBEDREQSVC 11-13 00:17 → ENRESERV 11-13 04:33
PROVIDERS: ADMIT Internal Medicine; ATTEND Internal Medicine
PROC: 5A09357 Assistance with Respiratory Ventilation, Less than 24 Consecutive Hours, Continuous Positive Airway Pressure (ICD-10-PCS; 2018-11-12)
PROC: 30233N1 Transfusion of Nonautologous Red Blood Cells into Peripheral Vein, Percutaneous Approach (ICD-10-PCS; 2018-11-13)
PROC: 5A09357 Assistance with Respiratory Ventilation, Less than 24 Consecutive Hours, Continuous Positive Airway Pressure (ICD-10-PCS; 2018-11-13)
PROC: 5A09357 Assistance with Respiratory Ventilation, Less than 24 Consecutive Hours, Continuous Positive Airway Pressure (ICD-10-PCS; 2018-11-14)
PROC: 0W993ZZ Drainage of Right Pleural Cavity, Percutaneous Approach (ICD-10-PCS; 2018-11-14)
PROC: 0W993ZZ Drainage of Right Pleural Cavity, Percutaneous Approach (ICD-10-PCS; principal; 2018-11-15)
DX: J96.22 Acute and chronic respiratory failure with hypercapnia (principal); I50.33 Acute on chronic diastolic (congestive) heart failure; E44.0 Moderate protein-calorie malnutrition; J18.9 Pneumonia, unspecified organism; E87.2 Acidosis; E11.22 Type 2 diabetes mellitus with diabetic chronic kidney disease; I13.0 Hypertensive heart and chronic kidney disease with heart failure and stage 1 through stage 4 chronic kidney disease, or unspecified chronic kidney disease; N18.3 Chronic kidney disease, stage 3 (moderate); E66.2 Morbid (severe) obesity with alveolar hypoventilation; I27.20 Pulmonary hypertension, unspecified; J44.0 Chronic obstructive pulmonary disease with (acute) lower respiratory infection; J44.1 Chronic obstructive pulmonary disease with (acute) exacerbation; N39.0 Urinary tract infection, site not specified; N04.9 Nephrotic syndrome with unspecified morphologic changes; E78.5 Hyperlipidemia, unspecified; F41.9 Anxiety disorder, unspecified; D50.9 Iron deficiency anemia, unspecified; Z59.0 Homelessness; Z87.441 Personal history of nephrotic syndrome; Z91.19 Patient's noncompliance with other medical treatment and regimen; Z99.81 Dependence on supplemental oxygen; Z87.891 Personal history of nicotine dependence
CPT/HCPCS: 32555; 36415; 36600; 71045; 76604; 80048; 80305; 82040; 82375; 82728; 82805; 82962; 83036; 83540; 83550; 83615; 83880; 84155; 84156; 84165; 84166; 84484; 85014; 85018; 85027; 86140; 86160; 86256; 86850; 86900; 86920; 88108; 88312; 93005; 93970; 94640; 94660; 96374; 96375; 97162; 97530; 99291; J1650; J1815; J1885; J1940; J2270; J2405; J2920; J3490; J7050; J7512; J7611; J7620; P9016; A4315